=== PATIENT | female | born 1955 | race Caucasian/White ===

== ENCOUNTER → 2017-01-15 | Outpatient (CLI) | payer BC ==
[~2017-01-15] MED LIST: ASPEC325 PO; ESTR1CRE PV; HYDR-5688 PO; KETO10TA PO; LISI-729 PO
[2017-01-15 16:58] LABS: POTASSIUM 3.8 mmol/L (3.5-5.1)
[2017-01-15 16:59] LABS: BASO % 0.9 %; BASO ABS # 0.05 K/uL (0-0.2); COMPLETE YES; EOS % 1.1 %; HEMATOCRIT 38.5 % (37-47); IG% 0.4 %; LYMPH % 37.6 %; LYMPH ABS # 2.11 K/uL (1.2-3.4); MEAN CELL VOLUME 96.3 fL (80-100); MEAN CORPUSCULAR HEMOGLOBIN 32.8 pg (25-34); MONO % 8.6 %; NEUT % 51.4 %; PLATELET COUNT 255 K/uL (130-400); WHITE BLOOD COUNT 5.61 K/uL (4.8-10.8)
== END | disposition home or self-care (01) ==
LOC: C.LABBC 14:14
PROVIDERS: ATTEND Orthopaedic Surgery Sports Medicine
DX: Z01.812 Encounter for preprocedural laboratory examination (principal)

== ENCOUNTER → 2017-01-17 | Day surgery (SDC) | payer BC ==
[2017-01-15 15:38] VITALS: Ht 172.7 cm; Wt 65.9 kg
[~2017-01-17] VITALS: Ht 172.7 cm; Wt 65.9 kg
[~2017-01-17] MED LIST changes: +ATROPINE SULFATE 0.1 MG/ML 5ML SYR IV PRN; +BUPIVACAINE/EPINEPHRINE 0.5% MPF 1:200,000 30 ML VIAL ONE; +CEFAZOLIN 1000MG/55 ML D5W IV SCH; +CEFAZOLIN SOD 1 GM VIAL IV ONE; +DEXAMETHASONE SOD INJ 4 MG/ML VIAL ONE; -ESTR1CRE PV; +EpHEDrine SULFATE INJ 50 MG/ML AMP IV PRN; +EpHEDrine SULFATE INJ 50 MG/ML AMP ONE; +FENTANYL CITRATE INJ 50 MCG/1 ML 2 ML VIAL ONE; +FLUMAZENIL 0.1 MG/1 ML 10 ML VIAL IV PRN; +GLYCOPYRROLATE INJ 0.2 MG/ML VIAL ONE; +HYDROCODONE/ACETAMOPHEN 5/325MG TAB PO PRN; +HYDROmorphone INJ 1 MG/ML SYR IV PRN; +KETOROLAC TROMETHAMINE 30 MG/ML VIAL IV. PRN; +LABETALOL HCL IV 5 MG/ML 20ML IV PRN; +LACTATED RINGER'S 1000ML 1,000 ML IV SCH; +LIDOCAINE HCL 2% 2 ML VIAL (20MG/ML) ONE; +MEPIVACAINE HCL 1% 30 ML VIAL ONE; +MIDAZOLAM HCL 1 MG/ML 2ML VIAL ONE; +NALOXONE HCL 0.4 MG/1 ML VIAL/CARP IV PRN; +NEOSTIGMINE METHYLSULFATE 5 MG/5 ML SYR ONE; +ONDANSETRON INJ 2 MG/ML 2 ML VIAL IV PRN; +ONDANSETRON INJ 2 MG/ML 2 ML VIAL ONE; +PHENYLEPHRINE HCL INJ 10 MG/ML VIAL ONE; +PROMETHAZINE HCL INJ 12.5 MG in SODIUM CHLORIDE 0.9% 50ML 50 ML IV PRN; +PROPOFOL IV EMULSION 10 MG/ML 20 ML VIAL IV ONE; +ROCURONIUM BROMIDE 10 MG/ML 5 ML VIAL ONE; +ROPIVACAINE 0.5% 5 MG/ML 30 ML VIAL ONE; +SODIUM CHLORIDE 0.9% 1000ML 1,000 ML IV SCH; +SUCCINYLCHOLINE CHLORIDE 20 MG/ML 10 ML VIAL IV ONE
--- NOTE | 2017-01-17 06:59 | History & Physical Bridge - SC ---
H&P Re-Evaluation Bridge Note: I have examined the patient, reviewed the History & Physical and in the interval since the performance of the History & Physical I have noted the following changes of clinical significance: No changes noted
--- NOTE | 2017-01-17 08:21 | [facility] Post Operative Brief Note ---
Immediate Operative Summary Operative Date Jan 17, 2017. Pre-Operative Diagnosis Left Achilles Tendon Rupture Post-Operative Diagnosis Same Procedure(s) Performed Left Achilles Tendon Repair Surgeon Dr Calixto [employer] Lab[employer] Surgeon(s) Juliette Solorzano PA-C Estimated Blood Loss Minimal Findings Left Achilles Rupture Specimens None Anesthesia General Complication(s) None Disposition Recovery Room / PACU
--- NOTE | 2017-01-17 08:23 | Discharge Instructions-SurgCtr ---
Discharge Instructions Date of Service Jan 17, 2017. Visit Reason for Visit: Left Achilles Tendon Rupture Discharge Discharge Diagnosis / Problem: LEFT ACHILLES TENDON RUPTURE Discharge Goals Goal(s): Therapeutic intervention Activity Recommendations Activity Limitations: per Instructions/Follow-up section Weightbearing Status: Left non-weightbearing Anesthesia . Post Anesthesia Instructions: If you have had General Anesthesia or IV Sedation: * Do not drive today. * Resume driving when surgeon permits. * Do not make important decisions or sign legal documents today. * Call surgeon for: 1. Temperature elevations greater than 101 degrees F. 2. Uncontrollable pain. 3. Excessive bleeding. 4. Persistent nausea and vomiting. 5. Medication intolerance (nausea, vomiting or rash). * For nausea and vomiting use only clear liquids such as: tea, soda, bouillon until nausea subsides, then gradually increase diet as tolerated. * If you have any concerns or questions, call your surgeon's office. If physician is unavailable and it is an emergency, call 911 or go to the nearest emergency room. . Instructions / Follow-Up Instructions / Follow-Up MEDICATIONS: * Resume previous medications unless instructed otherwise by your surgeon. * Always take pain medication on a full stomach or with food to avoid upset stomach. * Do not drink alcohol or drive while taking narcotics. * Ibuprofen or Tylenol may be taken if narcotic not needed. NO IBUPROFEN WHILE TAKING TORADOL SPECIAL CARE INSTRUCTIONS: __ None _X_ Keep Left lower extremity elevated as much as possible x__ Crutches __ May discard when able __ Brace/Post-op shoe __ 24 hrs/day __ Remove at night _x_ Dressing _x_ Maintain until seen in office, may shower with plastic over site __ Remove dressings in 24-48 hours and then may shower __ Cover incisions with band-aids after showering __ Do not remove steri-strips Call physician if chills or temperature rises above 102 degrees or pain unrelieved by prescribed pain medications. Office [phone] follow up in 2 weeks Diet Recommendations Home Diet: resume previous diet Procedures Procedures Performed: Left Achilles Tendon Repair Pending Studies Studies pending at discharge: no Medical Emergencies . Who to Call and When: Medical Emergencies: If at any time you feel your situation is an emergency, please call 911 immediately. . Non-Emergent Contact Non-Emergency issues call your: Primary Care Provider, Surgeon . . "Provider Documentation" section prepared by Brian Solorzano.
--- NOTE | 2017-01-17 08:52 | OPERATIVE REPORT ---
DATE OF OPERATION: 01/17/2017 SURGEON: Cornell Calixto MD SLIPMAN: COLTON Ott PREOPERATIVE DIAGNOSIS: Left Achilles tendon rupture. POSTOPERATIVE DIAGNOSIS: Same. PROCEDURE PERFORMED: Left Achilles tendon repair. COMPLICATIONS: None. ESTIMATED BLOOD LOSS: Minimal. TOURNIQUET TIME: 24 minutes at 300 mmHg. ANESTHESIA: General. SPECIMENS: None. OPERATIVE INDICATIONS: The patient is a 61-year-old female who injured her ankle just a little over a week ago. She was apparently playing some type of pickleball game in [place] when she sustained the injury. She felt an acute pop in her left gastroc/Achilles area. She was seen in the Emergency Room and then referred to our institution for care. She is diagnosed with an Achilles rupture. We talked about operative and nonoperative treatments and she elected to proceed with operative treatment. OPERATIVE PROCEDURE: The patient was taken to the operating room, identified and placed on the operating table in supine position. All contact areas were appropriately padded. IV antibiotics were provided by the anesthesia team. A general anesthetic was implemented by anesthesia team. The patient was then placed in the prone position using the prone positioners. A left thigh tourniquet was then placed. All contact areas were meticulously padded and the left leg was then prepped and draped in usual sterile fashion. Left leg was elevated and exsanguinated with Esmarch and tourniquet was placed at 300 mmHg. A longitudinal incision made over the medial border of the Achilles tendon. Sharp dissection was carried out through the subcutaneous tissue directly down to the peritenon. The peritenon was incised longitudinally in line with the skin incision. The ruptured Achilles tendon was easily visualized. I then placed a FiberTape in the proximal segment using a modified [place] stitch technique. I placed a #5 Ethibond suture in a similar fashion in the distal segment. We then held the foot in plantar flexion and tied these sutures together. It provided excellent approximation. I irrigated the wound extensively. I injected locally with 30 mL of 0.5% Marcaine with epinephrine. The peritenon was then closed over the back of the Achilles tendon with 3-0 Vicryl suture in a [id number] fashion. The subcutaneous tissues were then closed with 3-0 Vicryl suture in a buried interrupted fashion. The tourniquet was then let down for a tourniquet time 24 minutes. There was minimal bleeding. The skin was then closed with 3-0 nylon suture in a simple fashion. The leg was then cleaned and dried and a sterile dressing of Xeroform, 4 x 4's, sterile cast padding and a well-padded posterior and stirrup splint were applied. The patient then brought out of general anesthesia and transferred to the recovery room in stable condition. The patient tolerated the procedure well with no complications. All needle and sponge counts were correct at the end of the operation. I attest to the content of the Intraoperative Record and any orders documented therein. Any exceptions are noted below. MTDD
[2017-01-17 09:00] VITALS: TEMP 36.4
[2017-01-17 09:25] VITALS: BP 148/82; PULSE 60; O2SAT 98
--- NOTE | 2017-01-17 09:31 | Anesthesia Progress Nt - [facility] ---
Anesthesia Post Op Note Date & Time Jan 17, 2017 at 09:32 Vital Signs Pain Intensity: 0 Vital Signs Past 12 Hours Date Time Temp Pulse Resp B/P Pulse Ox O2 Delivery O2 Flow Rate FiO2 01/17/17 09:25 60 20 148/82 98 Room Air 01/17/17 09:00 36.4 60 20 115/73 95 Room Air 01/17/17 08:51 55 12 94 01/17/17 08:51 55 12 01/17/17 08:50 124/61 01/17/17 08:48 36.6 58 12 129/54 96 Room Air 01/17/17 08:46 60 12 99 01/17/17 08:46 61 12 01/17/17 08:45 129/54 01/17/17 08:43 59 12 92 01/17/17 08:43 59 12 01/17/17 08:40 122/61 01/17/17 08:38 57 18 99 01/17/17 08:38 57 18 01/17/17 08:35 111/54 01/17/17 08:33 58 7 100 01/17/17 08:33 58 7 01/17/17 08:30 113/51 01/17/17 08:28 66 9 01/17/17 08:28 65 9 100 01/17/17 08:27 66 12 100 01/17/17 08:27 66 12 01/17/17 08:25 120/52 01/17/17 08:22 70 15 01/17/17 08:22 72 15 100 01/17/17 08:20 116/52 01/17/17 08:17 36.6 71 12 128/67 100 Diffusion Mask 6 01/17/17 08:17 80 6 01/17/17 08:17 79 6 128/67 100 01/17/17 06:22 36.5 66 16 133/64 100 Room Air Notes Mental Status: alert / awake / arousable, participated in evaluation Pt Amnestic to Procedure: Yes Nausea / Vomiting: adequately controlled Pain: adequately controlled Airway Patency, RR, SpO2: stable & adequate BP & HR: stable & adequate Hydration State: stable & adequate Anesthetic Complications: no major complications apparent
== END | disposition home or self-care (01) ==
LOC: X.SURG 06:10
PROVIDERS: ATTEND Orthopaedic Surgery Sports Medicine
DX: S86.012A Strain of left Achilles tendon, initial encounter (principal); Y93.73 Activity, racquet and hand sports; Y92.312 Tennis court as the place of occurrence of the external cause

== ENCOUNTER → 2017-10-23 | Outpatient (CLI) | payer BC ==
[~2017-10-23] MED LIST changes: -ATROPINE SULFATE 0.1 MG/ML 5ML SYR IV PRN; -BUPIVACAINE/EPINEPHRINE 0.5% MPF 1:200,000 30 ML VIAL ONE; -CEFAZOLIN 1000MG/55 ML D5W IV SCH; -CEFAZOLIN SOD 1 GM VIAL IV ONE; -DEXAMETHASONE SOD INJ 4 MG/ML VIAL ONE; -EpHEDrine SULFATE INJ 50 MG/ML AMP IV PRN; -EpHEDrine SULFATE INJ 50 MG/ML AMP ONE; -FENTANYL CITRATE INJ 50 MCG/1 ML 2 ML VIAL ONE; -FLUMAZENIL 0.1 MG/1 ML 10 ML VIAL IV PRN; -GLYCOPYRROLATE INJ 0.2 MG/ML VIAL ONE; -HYDR-5688 PO; -HYDROCODONE/ACETAMOPHEN 5/325MG TAB PO PRN; -HYDROmorphone INJ 1 MG/ML SYR IV PRN; -KETO10TA PO; -KETOROLAC TROMETHAMINE 30 MG/ML VIAL IV. PRN; -LABETALOL HCL IV 5 MG/ML 20ML IV PRN; -LACTATED RINGER'S 1000ML 1,000 ML IV SCH; -LIDOCAINE HCL 2% 2 ML VIAL (20MG/ML) ONE; -MEPIVACAINE HCL 1% 30 ML VIAL ONE; -MIDAZOLAM HCL 1 MG/ML 2ML VIAL ONE; -NALOXONE HCL 0.4 MG/1 ML VIAL/CARP IV PRN; -NEOSTIGMINE METHYLSULFATE 5 MG/5 ML SYR ONE; -ONDANSETRON INJ 2 MG/ML 2 ML VIAL IV PRN; -ONDANSETRON INJ 2 MG/ML 2 ML VIAL ONE; -PHENYLEPHRINE HCL INJ 10 MG/ML VIAL ONE; -PROMETHAZINE HCL INJ 12.5 MG in SODIUM CHLORIDE 0.9% 50ML 50 ML IV PRN; -PROPOFOL IV EMULSION 10 MG/ML 20 ML VIAL IV ONE; -ROCURONIUM BROMIDE 10 MG/ML 5 ML VIAL ONE; -ROPIVACAINE 0.5% 5 MG/ML 30 ML VIAL ONE; -SODIUM CHLORIDE 0.9% 1000ML 1,000 ML IV SCH; -SUCCINYLCHOLINE CHLORIDE 20 MG/ML 10 ML VIAL IV ONE
--- NOTE | 2017-10-24 15:59 | MAMMOGRAPHY REPORT ---
BILATERAL DIGITAL SCREENING MAMMOGRAM TOMOSYNTHESIS WITH CAD: 10/23/2017 CLINICAL HISTORY: Routine screening examination. TECHNIQUE: Breast tomosynthesis in addition to standard 2D mammography was performed. Current study was also evaluated with a Computer Aided Detection (CAD) system. COMPARISON: Comparison is made to exams dated: 10/17/2016 mammogram, 10/15/2015 mammogram, 10/14/2014 m ammogram, 10/13/2013 mammogram, 10/08/2012 mammogram, and 10/03/2011 mammogram - [facility]. BREAST COMPOSITION: There are scattered areas of fibroglandular density in both breasts. FINDINGS: There is stable asymmetry in the superior right breast. No suspicious mass, architectural distortion or cluster of microcalcifications is seen. IMPRESSION: ACR BI-RADS CATEGORY 1: NEGATIVE There is no mammographic evidence of malignancy. A 1 year screening mammogram is recommended. The pa tient will receive written notification of the results. Approximately 10% of breast cancers are not detected with mammography. A negative mammographic report should not delay biopsy if a clinically suggestive mass is present. Ilana Yousif M.D. ay/:10/23/2017 16:32:33 Hydraulic Repairer: Stephanie SHAH(Caterina)(M), [facility] letter sent: Normal 1/2 BI-RADS Code: ACR BI-RADS Category 1: Negative
== END | disposition home or self-care (01) ==
LOC: C.MAMM 11:11
PROVIDERS: ATTEND Nurse Practitioner
DX: Z12.31 Encounter for screening mammogram for malignant neoplasm of breast (principal)

== ENCOUNTER 2025-06-03 08:36 | Inpatient (IN) ==
[2025-06-03] MEDS: ONDANSETRON INJ 2 MG/ML 2 ML VIAL IV STA ×2 (08:50→09:26)
[2025-06-03] MEDS: SODIUM CHLORIDE 0.9% 500 ML IV STA (08:50)
[2025-06-03] MEDS: ASPIRIN CHEW 324 MG PO STA (08:50)
[2025-06-03] MEDS: MoRPHine SULFATE 4 MG/ML 1 ML CARP\\VIAL IV STA (08:50)
--- NOTE | 2025-06-03 08:54 | Emergency Department Note ---
Impression & Plan NSTEMI (non-ST elevated myocardial infarction), Elevated troponin, Stress- induced cardiomyopathy ED Provider Note NAME: JENARO RANGEL AGE: 69 SEX: F : 1955 ARRIVES VIA: Walk-In INFORMANT: Patient, ED PROVIDER(S): Jamaal Isaacs DO CHIEF COMPLAINT: Chest pain HPI: The patient is a 69-year-old female who presented to the emergency department for an evaluation of chest pain. The patient describes left-sided chest pain which began 2 days ago. She states initially it was waxing and waning. She woke this morning with constant pain. She was very diaphoretic. She states she has pain with movement as well as taking a deep breath. She has a history of a fall with rib fractures recently. She denies having any abdominal pain or back pain. She denies having any vomiting but does complain of some nausea. ROS: See above HPI for pertinent positives & negatives. A total of 10 systems reviewed and were otherwise negative. PAST MEDICAL HISTORY: See Below PAST SURGICAL HISTORY: See Below FAMILY HISTORY: See Below SOCIAL HISTORY: See Below HOME MEDICATIONS: See Below ALLERGIES: See Below VITALS: See Below PHYSICAL EXAMINATION: GENERAL: The patient is awake and alert. She appears anxious and uncomfortable. EYES: The conjunctivae are clear. The pupils are round and reactive. EARS, NOSE, MOUTH AND THROAT: The nose is without any evidence of any deformity. NECK: The neck is nontender and supple. RESPIRATORY: Normal respiratory effort is noted there is no evidence of wheezing rhonchi or rales CARDIOVASCULAR: Regular rate and rhythm noted there no murmurs rubs or gallops normal S1 normal S2. GASTROINTESTINAL: The abdomen is soft. Abdomen is nontender. MUSCULOSKELETAL/EXTREMITIES: There is no evidence of gross deformity full range of motion is noted in the hips and shoulders. There is palpable tenderness over the left lower chest wall. There is no crepitus. SKIN: There is no obvious evidence of any rash. There are no petechiae, pallor or cyanosis noted. NEUROLOGIC: Patient is awake alert and oriented x3. Gait was steady. MEDICAL DECISION MAKING: The patient is a 69-year-old female who presented to the emergency department for an evaluation of chest pain. The patient did have EKG abnormalities on initial EKG. This was not consistent with a STEMI but was consistent with ischemia. The patient's previous EKG did show some similar ST abnormalities. The patient was treated with aspirin as well as pain medicine in the emergency department. She was reevaluated multiple times. The patient was found have an elevated troponin. She started having episodes of hypotension. I was concerned this could represent cardiogenic shock. I discussed her condition with the on- call [facility] long goods drier. The on-call long goods drier did review the patient's EKGs and an echo was obtained. The patient appeared to have apical hypokinesis. The patient was felt to be a good candidate for cardiac catheterization. She was evaluated by the aboriginal community council member. She was taken to the Russian History Professor. The patient was started on heparin. Triage Nursing notes reviewed. Prior medical records reviewed Vital Signs: reviewed and remarkable for episodes of hypotension. Differential diagnosis: Cardiac ischemia, aortic dissection, pulmonary embolism, pneumothorax, pneumonia, pericarditis, myocarditis, esophageal rupture, GERD, cholecystitis, pancreatitis, musculoskeletal, as well as other pathologies. ER treatment provided: See below Diagnostics interpreted by me: ECG: EKG was obtained in the emergency department. My interpretation is normal sinus rhythm at 95 bpm. There is no ectopy. Nonspecific ST depressions were noted. LVH was suggested by voltage criteria. This was compared to a tracing from June 28, 2013. No changes were noted. A second EKG was obtained in the emergency department. My interpretation is sinus rhythm at 95 bpm. There are no PVCs were noted. Increasing ST depressions were noted in the apical and low lateral leads. Cardiac Monitoring: An order was placed for continuous cardiac monitoring. The monitor shows a rate of 85 bpm with sinus rhythm. Laboratory studies: As stated above and show below. Imaging studies: See below. Radiographic imaging was reviewed by myself Consultation(s): I discussed this case with Dr. Lynn who is on for the [facility] cardiology group. I discussed this case with Dr. Reyes who is on-call for the [facility] hospitalist group. ED COURSE: Procedures: none Critical Care: I have personally spent greater than 45 minutes of critical care time in the direct management of this patient. This includes bedside care, interpretation of diagnostic studies, and testing, discussion with consultants, patient, and family members, and other required patient management activities. This 45 minutes is in excess of all separately billable procedures. Past Med/Surg History Problem List (Updated 06/03/25 @ 14:32 by Jamaal Isaacs, DO) Stress-induced cardiomyopathy (Acute) Elevated troponin (Acute) Acute exacerbation of congestive heart failure NSTEMI (non-ST elevated myocardial infarction) (Acute) Acute hypoxic respiratory failure Hypertension (Acute) Medical History HTN (hypertension) Cardiac murmur Follows with Dr. Rolle Surgical History Hx of right cataract extraction History of Achilles tendon repair History of esophagogastroduodenoscopy (EGD) History of colonoscopy History of repair of anterior cruciate ligament Family History Other No family history of adverse response to anesthesia Social History Smoking Status: Never smoker Second Hand Exposure: No; Do You Dip or Chew Tobacco: No; Hx Alcohol Use: Yes Alcohol type: wine Hx Substance Use: No Preferred Language: Japanese Communication Ability: Effective Flotation Tender Helper Required: No Beliefs That Will Affect Care: None Current Living Situation: Spouse Other Information That Helps Us Care for You: No Feels Safe at Home: Yes Safety Concerns: Feels Safe At This Time Assistive Devices: None Allergies Allergies Allergy/AdvReac Type Severity Reaction Status Date / Time meperidine Allergy Unknown Rash Verified 06/03/25 10:36 Home Meds Home Medications Medication Instructions Recorded Confirmed metoprolol succinate 25 mg 25 mg PO QAM 01/22/19 06/03/25 tablet,extended release 24 hr lisinopril 20 mg tablet 20 mg PO QAM 09/28/23 06/03/25 rosuvastatin 5 mg tablet 5 mg PO QAM 09/28/23 06/03/25 Results & Data (ED) Vital Signs Vital Signs - 24 hr 06/03/25 08:41 06/03/25 08:46 06/03/25 08:47 Temperature 36.4 C L Temperature Source Oral Pulse Rate 96 H 92 H Pulse Rate from SpO2 Sensor Pulse Rhythm Regular Pulse Strength Normal Respiratory Rate 26 H Respiratory Effort / Characteristics Spontaneous Labored Non-Labored Spontaneous Respiratory Depth Shallow Normal Respiratory Pattern Regular Blood Pressure 98/63 L Blood Pressure Mean 74 Pulse Oximetry 99 Oxygen Delivery Method Room Air Oxygen Flow Rate Fraction of Inspired Oxygen Sepsis Recent Fever Within 48 Hours No Sepsis New/Unexplained Change in Mental Status N/A Sepsis Action Taken by Nursing No Action Required 06/03/25 08:57 06/03/25 09:01 06/03/25 09:03 Temperature Temperature Source Pulse Rate 95 H 91 H Pulse Rate from SpO2 Sensor 95 H 90 Pulse Rhythm Pulse Strength Respiratory Rate 13 21 Respiratory Effort / Characteristics Respiratory Depth Respiratory Pattern Blood Pressure 82/58 L Blood Pressure Mean 68 Pulse Oximetry 99 99 Oxygen Delivery Method Room Air Room Air Oxygen Flow Rate Fraction of Inspired Oxygen Sepsis Recent Fever Within 48 Hours Sepsis New/Unexplained Change in Mental Status Sepsis Action Taken by Nursing 06/03/25 09:05 06/03/25 09:05 06/03/25 09:16 Temperature Temperature Source Pulse Rate Pulse Rate from SpO2 Sensor Pulse Rhythm Pulse Strength Respiratory Rate Respiratory Effort / Characteristics Respiratory Depth Respiratory Pattern Blood Pressure 83/53 L 83/53 L 69/49 L Blood Pressure Mean 67 67 54 Pulse Oximetry Oxygen Delivery Method Oxygen Flow Rate Fraction of Inspired Oxygen Sepsis Recent Fever Within 48 Hours Sepsis New/Unexplained Change in Mental Status Sepsis Action Taken by Nursing 06/03/25 09:18 06/03/25 09:21 06/03/25 09:23 Temperature Temperature Source Pulse Rate 89 90 Pulse Rate from SpO2 Sensor 89 91 H Pulse Rhythm Pulse Strength Respiratory Rate 30 H 23 Respiratory Effort / Characteristics Respiratory Depth Respiratory Pattern Blood Pressure 85/53 L Blood Pressure Mean 70 Pulse Oximetry 99 97 Oxygen Delivery Method Room Air Room Air Oxygen Flow Rate Fraction of Inspired Oxygen Sepsis Recent Fever Within 48 Hours Sepsis New/Unexplained Change in Mental Status Sepsis Action Taken by Nursing 06/03/25 09:26 06/03/25 09:46 06/03/25 09:48 Temperature Temperature Source Pulse Rate 94 H Pulse Rate from SpO2 Sensor 81 Pulse Rhythm Pulse Strength Respiratory Rate 29 H Respiratory Effort / Characteristics Respiratory Depth Respiratory Pattern Blood Pressure 89/67 L 84/59 L Blood Pressure Mean 82 62 Pulse Oximetry 96 Oxygen Delivery Method Room Air Oxygen Flow Rate Fraction of Inspired Oxygen Sepsis Recent Fever Within 48 Hours Sepsis New/Unexplained Change in Mental Status Sepsis Action Taken by Nursing 06/03/25 09:55 06/03/25 09:57 06/03/25 09:57 Temperature Temperature Source Pulse Rate 97 H Pulse Rate from SpO2 Sensor Pulse Rhythm Pulse Strength Respiratory Rate 23 Respiratory Effort / Characteristics Respiratory Depth Respiratory Pattern Blood Pressure 90/56 L Blood Pressure Mean 70 Pulse Oximetry 94 94 Oxygen Delivery Method Nasal Cannula Nasal Cannula Oxygen Flow Rate 4 4 Fraction of Inspired Oxygen Sepsis Recent Fever Within 48 Hours Sepsis New/Unexplained Change in Mental Status Sepsis Action Taken by Nursing 06/03/25 09:57 06/03/25 10:00 06/03/25 10:00 Temperature Temperature Source Pulse Rate 96 H 91 H Pulse Rate from SpO2 Sensor 96 H Pulse Rhythm Pulse Strength Respiratory Rate 21 31 H Respiratory Effort / Characteristics Respiratory Depth Respiratory Pattern Blood Pressure 83/59 L Blood Pressure Mean 67 Pulse Oximetry 93 Oxygen Delivery Method Room Air Oxygen Flow Rate Fraction of Inspired Oxygen Sepsis Recent Fever Within 48 Hours Sepsis New/Unexplained Change in Mental Status Sepsis Action Taken by Nursing 06/03/25 10:05 06/03/25 10:48 06/03/25 10:51 Temperature Temperature Source Pulse Rate 91 H Pulse Rate from SpO2 Sensor Pulse Rhythm Pulse Strength Respiratory Rate 15 Respiratory Effort / Characteristics Spontaneous Respiratory Depth Normal Respiratory Pattern Regular Blood Pressure 86/60 L Blood Pressure Mean 62 Pulse Oximetry 90 Oxygen Delivery Method Nasal Cannula Oxygen Flow Rate 4 Fraction of Inspired Oxygen 100 Sepsis Recent Fever Within 48 Hours Sepsis New/Unexplained Change in Mental Status Sepsis Action Taken by Nursing 06/03/25 11:05 Temperature Temperature Source Pulse Rate 92 H Pulse Rate from SpO2 Sensor Pulse Rhythm Pulse Strength Respiratory Rate 28 H Respiratory Effort / Characteristics Spontaneous Respiratory Depth Normal Respiratory Pattern Tachypnea Blood Pressure Blood Pressure Mean Pulse Oximetry 95 Oxygen Delivery Method Oxygen Flow Rate Fraction of Inspired Oxygen 50 Sepsis Recent Fever Within 48 Hours Sepsis New/Unexplained Change in Mental Status Sepsis Action Taken by [facility] Medications Current Medication List: was personally reviewed by me Laboratory Data Attestation: I reviewed the patient's lab results. 06/03/25 08:51 06/03/25 08:51 Lab Results 06/03/25 06/03/25 06/03/25 Range/Units 08:51 09:18 09:30 WBC 6.01 (4.8-10.8) K/ul RBC 3.58 L (4.20-5.40) M/uL Hgb 12.8 (12.0-16.0) g/dl Hct 36.5 L (37.0-47.0) % MCV 102.0 H (80.0-100.0) fL MCH 35.8 H (25.0-34.0) pg MCHC 35.1 (32.0-36.0) g/dL RDW Std Deviation 45.6 (36.4-46.3) fL RDW Coeff of [place] 12.1 (11.5-14.5) % Plt Count 149 (130-400) K/uL MPV 9.2 L (9.4-12.4) fL Immature Gran % (Auto) 1.0 % Neut % (Auto) 71.5 % Lymph % (Auto) 18.8 % [place] % (Auto) 7.0 % Eos % (Auto) 0.7 % Baso % (Auto) 1.0 % Neut # (Auto) 4.30 (1.40-6.50) K/uL Lymph # (Auto) 1.13 L (1.20-3.40) K/uL [place] # (Auto) 0.42 (0.11-0.59) K/uL Eos # (Auto) 0.04 (0.00-0.50) K/uL Baso # (Auto) 0.06 (0.00-0.20) K/uL Immature Gran # (Auto) 0.06 (0.01-0.20) K/uL PT Cancelled 11.2 INR Cancelled 1.0 APTT Cancelled 26 PTT Ratio Cancelled 1.0 Activ Coag Time Kaolin (94-140) SECONDS D-Dimer Cancelled 560 H* Sodium 131 L (136-145) mmol/L Potassium 4.6 (3.5-5.1) mmol/L Chloride 94 L (98-107) mmol/L Carbon Dioxide 23 (21-32) mmol/L Anion Gap 14 H (3-11) BUN 11 (6-23) mg/dl Creatinine 0.93 (0.6-1.2) mg/dl Est Cr Clr Drug Dosing 56.6 ml/min eGFR 66.53 BUN/Creatinine Ratio 11.8 (10-20) Glucose 112 H (70-99(Fasting)) mg/dl Calcium 9.4 (8.6-10.3) mg/dl Total Bilirubin 1.5 H (0.2-1.0) mg/dl AST 168 H (13-39) U/L ALT 41 (7-52) U/L Alkaline Phosphatase 61 (34-104) U/L Troponin I High Sens 356.8 H* (0-14) pg/ml C-Reactive Protein < 0.50 (0-0.5) mg/dl Total Protein 6.8 (6.0-8.3) gm/dl Albumin 4.4 (3.4-5.0) gm/dl Globulin 2.4 L (2.5-4.0) gm/dl Albumin/Globulin Ratio 1.8 (0.9-2) Lipase 71 (11-82) U/L Procalcitonin 0.31 (0-0.5) ng/ml 06/03/25 06/03/25 Range/Units 10:48 10:58 WBC (4.8-10.8) K/ul RBC (4.20-5.40) M/uL Hgb (12.0-16.0) g/dl Hct (37.0-47.0) % MCV (80.0-100.0) fL MCH (25.0-34.0) pg MCHC (32.0-36.0) g/dL RDW Std Deviation (36.4-46.3) fL RDW Coeff of [place] (11.5-14.5) % Plt Count (130-400) K/uL MPV (9.4-12.4) fL Immature Gran % (Auto) % Neut % (Auto) % Lymph % (Auto) % [place] % (Auto) % Eos % (Auto) % Baso % (Auto) % Neut # (Auto) (1.40-6.50) K/uL Lymph # (Auto) (1.20-3.40) K/uL [place] # (Auto) (0.11-0.59) K/uL Eos # (Auto) (0.00-0.50) K/uL Baso # (Auto) (0.00-0.20) K/uL Immature Gran # (Auto) (0.01-0.20) K/uL PT INR APTT PTT Ratio Activ Coag Time Kaolin 170 H 204 H (94-140) SECONDS D-Dimer Sodium (136-145) mmol/L Potassium (3.5-5.1) mmol/L Chloride (98-107) mmol/L Carbon Dioxide (21-32) mmol/L Anion Gap (3-11) BUN (6-23) mg/dl Creatinine (0.6-1.2) mg/dl Est Cr Clr Drug Dosing ml/min eGFR BUN/Creatinine Ratio (10-20) Glucose (70-99(Fasting)) mg/dl Calcium (8.6-10.3) mg/dl Total Bilirubin (0.2-1.0) mg/dl AST (13-39) U/L ALT (7-52) U/L Alkaline Phosphatase (34-104) U/L Troponin I High Sens (0-14) pg/ml C-Reactive Protein (0-0.5) mg/dl Total Protein (6.0-8.3) gm/dl Albumin (3.4-5.0) gm/dl Globulin (2.5-4.0) gm/dl Albumin/Globulin Ratio (0.9-2) Lipase (11-82) U/L Procalcitonin (0-0.5) ng/ml Administered Medications Promethazine HCl (Phenergan) 12.5 mg in 50.5 mls @ 202 mls/hr IV Q6H PRN PRN Reason: Nausea And Vomiting Stop: 07/03/25 13:23 Last Infusion: 06/03/25 14:29 Dose: Infused Documented By: Admin: 06/03/25 13:38 Dose: 202 mls/hr Documented By: GORDO Discontinued Medications Aspirin (Aspirin Chew 324 Mg) 324 mg PO NOW STA Stop: 06/03/25 08:42 Last Admin: 06/03/25 08:50 Dose: 324 mg Documented By: LADI Fentanyl Citrate (Fentanyl Citrate Pf 100 Mcg/2 Ml Vial) Confirm Administered Dose 100 mcg .ROUTE .STK-MED ONE Stop: 06/03/25 10:26 Last Increment: 06/03/25 11:07 Dose: 25 mcg Documented By: LASHELL Furosemide (Furosemide 40 Mg/4 Ml Vial) Confirm Administered Dose 40 mg IV .STK- MED ONE Stop: 06/03/25 10:43 Last Admin: 06/03/25 11:08 Dose: 20 mg Documented By: LASHELL Heparin Sodium (Porcine) (Heparin Sod (Porcine) 1000 Unit/Ml) 1 units IV NOW ONE Stop: 06/03/25 10:05 Last Admin: 06/03/25 10:06 Dose: 4,000 units Documented By: RACHNA Co-signed By: JKB Heparin Sodium (Porcine) (Heparin (Porcine) 1000 Unit/Ml 10 Ml (Russian History Professor Use Only)) Confirm Administered Dose 10,000 units .ROUTE .STK-MED ONE Stop: 06/03/25 10:25 Last Admin: 06/03/25 11:06 Dose: 3,000 units Documented By: LASHELL Heparin Sodium/Dextrose (Heparin Iv Adult Wt-Based Low-Dose W/ Initial Bolus Protocol) 1 each IV NOW STA; Protocol Stop: 06/03/25 09:50 Last Admin: 06/03/25 12:01 Dose: Not Given Documented By: GORDO Heparin Sodium/Sodium Chloride (Heparin In Nss Infusion 1000 Unit/500 Ml (2 U/Ml) Bag) Confirm Administered Dose 3,000 units IV .STK-MED ONE Stop: 06/03/25 10:26 Last Admin: 06/03/25 11:07 Dose: 3,000 units Documented By: AURA Sodium Chloride (Nss) 500 mls @ 999 mls/hr IV .Q31M STA Stop: 06/03/25 09:11 Last Infusion: 06/03/25 10:03 Dose: Infused Documented By: Admin: 06/03/25 08:50 Dose: 999 mls/hr Documented By: LADI Sodium Chloride (Nss) 1,000 mls @ 999 mls/hr IV .Q1H1M ONE Stop: 06/03/25 10:03 Last Infusion: 06/03/25 10:01 Dose: Infused Documented By: Admin: 06/03/25 09:06 Dose: 999 mls/hr Documented By: LADI Sodium Chloride (Nss) 1,000 mls @ 999 mls/hr IV .Q1H1M ONE Stop: 06/03/25 10:19 Last Infusion: 06/03/25 10:01 Dose: Infused Documented By: Admin: 06/03/25 09:28 Dose: 999 mls/hr Documented By: LADI Heparin Sodium/Dextrose (Heparin 27881 Unit/500 Ml D5w) 25,000 units in 500 mls @ 15 mls/hr IV .Q24H [facility]; Protocol Stop: 07/03/25 10:14 Last Titration: 06/03/25 12:01 Dose: Infused Documented By: GORDO Co-signed By: DAMIAN Admin: 06/03/25 10:07 Dose: 750 units/hr, 15 mls/hr Documented By: RACHNA Co-signed By: FARTUN Ceftriaxone Sodium (Rocephin) 2,000 mg in 50 mls @ 100 mls/hr IV NOW STA Stop: 06/03/25 10:34 Last Admin: 06/03/25 12:01 Dose: Not Given Documented By: GORDO Ioversol (Optiray 320 125ml) 112 ml IV ONCE ONE Stop: 06/03/25 09:35 Last Admin: 06/03/25 09:35 Dose: 112 ml Documented By: DYLAN Ioversol (Optiray 350) Confirm Administered Dose 1 ml .ROUTE .STK-MED ONE Stop: 06/03/25 10:26 Last Admin: 06/03/25 11:08 Dose: 1 ml Documented By: AURA Midazolam HCl (Midazolam Hcl 1 Mg/Ml 2ml Vial) Confirm Administered Dose 2 mg .ROUTE .STK-MED ONE Stop: 06/03/25 10:25 Last Increment: 06/03/25 11:06 Dose: 1 mg Documented By: LASHELL Morphine Sulfate (Morphine Sulfate 4 Mg/Ml 1 Ml Carp\Vial) 4 mg IV NOW STA Stop: 06/03/25 08:42 Last Admin: 06/03/25 08:50 Dose: 4 mg Documented By: LADI Nicardipine HCl (Nicardipine 2,000 Mcg/20 Ml Syr) Confirm Administered Dose 2,000 mcg .ROUTE .STK-MED ONE Stop: 06/03/25 10:26 Last Admin: 06/03/25 11:08 Dose: 2,000 mcg Documented By: AURA Nitroglycerin/Dextrose (Nitroglycerin/D5w 100mcg/Ml 20ml Syr) Confirm Administered Dose 2,000 mcg .ROUTE .STK-MED ONE Stop: 06/03/25 10:26 Last Admin: 06/03/25 11:08 Dose: 2,000 mcg Documented By: AURA Ondansetron HCl (Ondansetron Inj 2 Mg/Ml 2 Ml Vial) 4 mg IV NOW STA Stop: 06/03/25 08:42 Last Admin: 06/03/25 08:50 Dose: 4 mg Documented By: LADI Ondansetron HCl (Ondansetron Inj 2 Mg/Ml 2 Ml Vial) 4 mg IV NOW STA Stop: 06/03/25 09:26 Last Admin: 06/03/25 09:26 Dose: 4 mg Documented By: LADI Phenylephrine HCl (Phenylephrine 100mcg/Ml 5ml Syr) Confirm Administered Dose 100 mcg .ROUTE .STK-MED ONE Stop: 06/03/25 10:48 Last Admin: 06/03/25 11:09 Dose: 100 mcg Documented By: LASHELL Co-signed By: JULIANOF Phenylephrine HCl (Phenylephrine Hcl 25 Mg/250 Ml Nss) Confirm Administered Dose 25 mg IV .STK-MED ONE Stop: 06/03/25 10:53 Last Admin: 06/03/25 11:09 Dose: 25 mg Documented By: LASHELL Co-signed By: TLF Ticagrelor (Ticagrelor 90 Mg Tab) Confirm Administered Dose 180 mg .ROUTE .STK- MED ONE Stop: 06/03/25 10:32 Last Admin: 06/03/25 10:34 Dose: 180 mg Documented By: RACHNA Imaging Data Attestation: I personally reviewed and interpreted this imaging study as follows: My Impression: 1 view chest x-ray was obtained in the emergency department. My interpretation is no free air or definite infiltrate, final report below. Radiologist's Impression: Chest X-Ray 06/03/25 08:41 XR chest 1V portable CLINICAL HISTORY: Chest pain, nonspecific COMPARISON STUDY: None FINDINGS: Heart size and pulmonary vasculature are normal. No consolidation or pleural effusion. No pneumothorax. IMPRESSION: No acute findings. ACT 112: Negative or not required by law. Electronically signed by: Anibal Meyers M.D. 06/03/2025 9:05 AM Abdomen/Pelvis CT 06/03/25 09:19 CT SCAN OF THE ABDOMEN AND PELVIS WITH IV CONTRAST CLINICAL HISTORY: Left-sided chest pain. COMPARISON STUDY: MRI of the pelvis October 09, 2006. TECHNIQUE: Following the IV administration of 112 cc of Optiray 320, CT scan of the abdomen and pelvis is performed from the lung bases to the proximal femora. Images are reviewed in the axial, sagittal, and coronal planes. IV contrast was administered without complication. A dose lowering technique was utilized adhering to the principles of ALARA. FINDINGS: Please note that the chest CT will be reported separately. Multiple healing anterior left-sided rib fractures are better depicted on that exam. Interlobular septal thickening is noted. No pneumatosis, free air or portal venous gas is identified. There is hepatic steatosis. There are no hepatic lesions. No biliary or pancreatic ductal dilatation is present. Spleen and adrenal glands are unremarkable. There is no peripancreatic infiltration. No hydronephrosis. Several cystic lesions within the pancreas measure up to 1.7 cm. These are cysts within the pancreatic body on image 86 of 361. No enhancing pancreatic lesions are present. There is no evidence for a bowel obstruction. The caliber and wall thickness of small and large bowel are normal. Mild mesenteric stranding is of doubtful significance. Multiple peripherally calcified fibroids measure up to 7.4 cm. These have decreased in size since MRI of October 09, 2006. Bladder wall thickening is accentuated by underdistention. There is no lymphadenopathy. There are no fluid collections. IMPRESSION: 1. No acute process within the abdomen or pelvis. 2. Hepatic steatosis. 3. Multiple calcified fibroids, decreased in size since MRI of October 09, 2006. 4. Several cystic pancreatic lesions measure up to 1.7 cm. These are likely benign and favor side branch IPMNs. A follow-up pancreatic protocol MRI in 6 months to ensure stability is recommended. 5. Interstitial pulmonary edema within the lung bases. Multiple healing left- sided rib fractures better depicted on the chest CT which will be reported separately. ACT 112: Negative or not required by law. Electronically signed by: Eddie Dinh M.D. 06/03/2025 10:09 AM Chest CTA 06/03/25 09:19 CT angio chest PE protocol CT DOSE: 1394.05 mGy.cm HISTORY: PE. TECHNIQUE: Multiple CTA images of the chest were obtained after the intravenous administration of 112 ml Optiray. Coronal and sagittal MIPS were obtained from the axial data set and were submitted for review. All measurements were obtained according to NASCET criteria. A dose lowering technique was utilized adhering to the principles of ALARA. COMPARISON STUDY: None FINDINGS: There is mild cardiomegaly with mild prominence of the pulmonary vasculature consistent with CHF. There is septal thickening and mild groundglass opacity in the lungs consistent with mild pulmonary edema. There is no pneumonia or pleural effusion. No pneumothorax. No enlarged adenopathy. No pericardial effusion. There are coronary artery and aortic calcifications. No pulmonary embolism. There is fatty liver. There are mild thoracic spine degenerative changes. There are a few subacute left-sided anterior lateral rib fractures which are incompletely healed. No acute osseous findings seen. IMPRESSION: 1. No pulmonary embolism seen. 2. CHF with mild pulmonary edema. 3. Subacute incompletely healed left-sided rib fractures. No significant displacement seen at the fractures. No pneumothorax. ACT 112: Negative or not required by law. The above report was generated using voice recognition software. It may contain grammatical, syntax or spelling errors. Electronically signed by: Anibal Meyers M.D. 06/03/2025 10:20 AM Discharge Plan Visit Data Chief Complaint: Chest Pain Stated Complaint: CHEST PAIN,SOB ED Provider: Jamaal Isaacs Discharge Problem: NSTEMI (non-ST elevated myocardial infarction), Elevated troponin, Stress- induced cardiomyopathy Patient Disposition: Admitted As Inpatient Condition: Critical Discharge Instructions Interventions: ED Discharge Assessment Last Done: 06/03/25 10:51
[2025-06-03] MEDS: SODIUM CHLORIDE 0.9% 1,000 ML IV ONE ×2 (09:06→09:28)
--- NOTE | 2025-06-03 09:06 | XRay Report ---
XR chest 1V portable CLINICAL HISTORY: Chest pain, nonspecific COMPARISON STUDY: None FINDINGS: Heart size and pulmonary vasculature are normal. No consolidation or pleural effusion. No p neumothorax. IMPRESSION: No acute findings. ACT 112: Negative or not required by law. Electronically signed by: Anibal Meyers M.D. 06/03/2025 9:05 AM
[2025-06-03 09:08] LABS: Hematocrit (blood only) 36.5 % (37.0-47.0); Hemoglobin 12.8 g/dl (12.0-16.0); Immature Granulocytes # (auto) 0.06 K/uL (0.01-0.20); Immature Granulocytes % (auto) 1.0 %; Mean Corpuscular Hemoglobin 35.8 pg (25.0-34.0); Mean Corpuscular Volume 102.0 fL (80.0-100.0); Platelet Count 149 K/uL (130-400); RDW Standard Deviation 45.6 fL (36.4-46.3); Red Blood Count 3.58 M/uL (4.20-5.40); White Blood Count 6.01 K/ul (4.8-10.8)
[2025-06-03 09:27] LABS: Alanine Aminotransferase 41.0 U/L (7-52); Albumin Globulin Ratio 1.8 (0.9-2); Alkaline Phosphatase 61.0 U/L (34-104); Anion Gap 14.0 (3-11); Bilirubin,Total 1.5 mg/dl (0.2-1.0); Blood Urea Nitrogen 11.0 mg/dl (6-23); Calcium 9.4 mg/dl (8.6-10.3); Carbon Dioxide 23.0 mmol/L (21-32); Chloride 94.0 mmol/L (98-107); Creatinine Clr Calc Pharmacy 56.6 ml/min; Globulin 2.4 gm/dl (2.5-4.0); Glucose 112.0 mg/dl (70-99(Fasting)); Lipase 71.0 U/L (11-82); Potassium 4.6 mmol/L (3.5-5.1); Sodium 131.0 mmol/L (136-145); Total Protein 6.8 gm/dl (6.0-8.3)
[2025-06-03] MEDS: OPTIRAY 320 125ml IV ONE (09:35)
[2025-06-03 09:53] LABS: INR 1.0 (0.9-1.1); Partial Thromboplastin Time 26 Seconds (21-31); Prothrombin Time 11.2 Seconds (9.0-12.0)
[2025-06-03] MEDS: HEPARIN SOD (PORCINE) 1000 UNIT/ML IV ONE (10:06)
[2025-06-03] MEDS: HEPARIN 25000 UNIT/500 ML D5W 25,000 UNITS/500 ML BAG IV SCH ×2 (10:07→18:07)
--- NOTE | 2025-06-03 10:11 | CT Scan Report ---
CT SCAN OF THE ABDOMEN AND PELVIS WITH IV CONTRAST CLINICAL HISTORY: Left-sided chest pain. COMPARISON STUDY: MRI of the pelvis October 09, 2006. TECHNIQUE: Following the IV administration of 112 cc of Optiray 320, CT scan of the abdomen and pelv is is performed from the lung bases to the proximal femora. Images are reviewed in the axial, sagitta l, and coronal planes. IV contrast was administered without complication. A dose lowering technique w as utilized adhering to the principles of ALARA. FINDINGS: Please note that the chest CT will be reported separately. Multiple healing anterior left-s ided rib fractures are better depicted on that exam. Interlobular septal thickening is noted. No pneu matosis, free air or portal venous gas is identified. There is hepatic steatosis. There are no hepati c lesions. No biliary or pancreatic ductal dilatation is present. Spleen and adrenal glands are unrem arkable. There is no peripancreatic infiltration. No hydronephrosis. Several cystic lesions within th e pancreas measure up to 1.7 cm. These are cysts within the pancreatic body on image 86 of 361. No en hancing pancreatic lesions are present. There is no evidence for a bowel obstruction. The caliber and wall thickness of small and large bowel are normal. Mild mesenteric stranding is of doubtful signifi cance. Multiple peripherally calcified fibroids measure up to 7.4 cm. These have decreased in size si nce MRI of October 09, 2006. Bladder wall thickening is accentuated by underdistention. There is no lymphadenopathy. There are no fluid collections. IMPRESSION: 1. No acute process within the abdomen or pelvis. 2. Hepatic steatosis. 3. Multiple calcified fibroids, decreased in size since MRI of October 09, 2006. 4. Several cystic pancreatic lesions measure up to 1.7 cm. These are likely benign and favor side bra nch IPMNs. A follow-up pancreatic protocol MRI in 6 months to ensure stability is recommended. 5. Interstitial pulmonary edema within the lung bases. Multiple healing left-sided rib fractures bett er depicted on the chest CT which will be reported separately. ACT 112: Negative or not required by law. Electronically signed by: Eddie Dinh M.D. 06/03/2025 10:09 AM
[2025-06-03] MEDS: cefTRIAXone SODIUM 2,000 MG/50 ML BAG IV STA (10:20)
--- NOTE | 2025-06-03 10:21 | CT Scan Report ---
CT angio chest PE protocol CT DOSE: 1394.05 mGy.cm HISTORY: PE. TECHNIQUE: Multiple CTA images of the chest were obtained after the intravenous administration of 112 ml Optiray. Coronal and sagittal MIPS were obtained from the axial data set and were submitted for review. All measurements were obtained according to NASCET criteria. A dose lowering technique was u tilized adhering to the principles of ALARA. COMPARISON STUDY: None FINDINGS: There is mild cardiomegaly with mild prominence of the pulmonary vasculature consistent wit h CHF. There is septal thickening and mild groundglass opacity in the lungs consistent with mild pulm onary edema. There is no pneumonia or pleural effusion. No pneumothorax. No enlarged adenopathy. No p ericardial effusion. There are coronary artery and aortic calcifications. No pulmonary embolism. Ther e is fatty liver. There are mild thoracic spine degenerative changes. There are a few subacute left-s ided anterior lateral rib fractures which are incompletely healed. No acute osseous findings seen. IMPRESSION: 1. No pulmonary embolism seen. 2. CHF with mild pulmonary edema. 3. Subacute incompletely healed left-sided rib fractures. No significant displacement seen at the fra ctures. No pneumothorax. ACT 112: Negative or not required by law. The above report was generated using voice recognition software. It may contain grammatical, syntax o r spelling errors. Electronically signed by: Anibal Meyers M.D. 06/03/2025 10:20 AM
--- NOTE | 2025-06-03 10:28 | Pre Anesthesia Assessment ---
Date of Service June 03, 2025 Pre Sedation Assessment Vital Signs Temp Pulse Resp BP Pulse Ox O2 Del Method O2 Flow Rate 06/03/25 10:05 86/60 L 06/03/25 10:00 91 H 31 H 06/03/25 10:00 83/59 L 06/03/25 09:57 96 H 21 93 Room Air 06/03/25 09:57 97 H 23 94 Nasal Cannula 4 06/03/25 09:57 94 Nasal Cannula 4 06/03/25 09:55 90/56 L 06/03/25 09:48 94 H 29 H 96 Room Air 06/03/25 09:46 84/59 L 06/03/25 09:26 89/67 L 06/03/25 09:23 85/53 L 06/03/25 09:21 90 23 97 Room Air 06/03/25 09:18 89 30 H 99 Room Air 06/03/25 09:16 69/49 L 06/03/25 09:05 83/53 L 06/03/25 09:05 83/53 L 06/03/25 09:03 91 H 21 99 Room Air 06/03/25 09:01 82/58 L 06/03/25 08:57 95 H 13 99 Room Air 06/03/25 08:47 36.4 C L 92 H 26 H 98/63 L 99 Room Air 06/03/25 08:46 96 H Cardiovascular Additional Comments: Regular rate and rhythm. Hypotensive. (Mild) Respiratory Additional Comments: Clear to auscultation bilaterally. No wheezing, rhonchi, or rales. Pre-Sedation Airway Assessment Smoking Status: Never smoker Mallampati 3 ASA 4 Notes The planned sedation has been discussed with the patient. Informed Consent was obtained. I have identified the patient, determined the appropriateness of sedation and have assessed the patient immediately prior to the procedure. All medicine(s) and interventions are by my order. [facility] [place] Procedure Codes (Charges) Indication for Procedure Indication for procedure: Non-ST elevation MD
[2025-06-03] MEDS: TICAGRELOR 90 MG TAB ONE (10:34)
--- NOTE | 2025-06-03 11:05 | Post Anesthesia Assessment ---
Date of Service June 03, 2025 Post Sedation Assessment Vital Signs Temp Pulse Resp BP Pulse Ox O2 Del Method O2 Flow Rate 06/03/25 10:51 Nasal Cannula 4 06/03/25 10:05 86/60 L 06/03/25 10:00 91 H 31 H 06/03/25 10:00 83/59 L 06/03/25 09:57 96 H 21 93 Room Air 06/03/25 09:57 97 H 23 94 Nasal Cannula 4 06/03/25 09:57 94 Nasal Cannula 4 06/03/25 09:55 90/56 L 06/03/25 09:48 94 H 29 H 96 Room Air 06/03/25 09:46 84/59 L 06/03/25 09:26 89/67 L 06/03/25 09:23 85/53 L 06/03/25 09:21 90 23 97 Room Air 06/03/25 09:18 89 30 H 99 Room Air 06/03/25 09:16 69/49 L 06/03/25 09:05 83/53 L 06/03/25 09:05 83/53 L 06/03/25 09:03 91 H 21 99 Room Air 06/03/25 09:01 82/58 L 06/03/25 08:57 95 H 13 99 Room Air 06/03/25 08:47 36.4 C L 92 H 26 H 98/63 L 99 Room Air 06/03/25 08:46 96 H Recovery Score Activity: Moves 4 extremities Respiration: Deep Breath/Cough Circulation: +/-20% PreAnes Value Consciousness: Arouseable (by name) Oxygen Saturation: O2 needed for >90% Discharge Sedation Level of Care: Phase I Post Sedation Plan On clinical assessment, the patient appears to have tolerated the sedation without complications. Patient is recovering as anticipated. Patient will continue to be monitored by nursing and may be discharged when sedation discharge criteria are met per below protocol. Upon Completions of procedure up to 15 minutes continue every 5 minute vital signs and the P.A.R. score; then discharge to a Phase I or Fast Track to Phase II per the following guidelines: * Discharge Patient to appropriate Phase II area if PAR is 8 or greater or return to pre- procedure baseline. The post - procedure orders will be as directed. * If PAR score is less than 8 or not return to pre-procedure baseline then patient will follow Phase I monitoring till PAR is reached for Phase II. The Phase I may be done in procedure room or may call to secure a Phase I area. * If naloxone or flumazenil are used for reversal, hold in Phase I for continued monitoring from when last reversal dose was given for a minimum of 60 minutes or longer pending the nurse and/or physician discretion of patient condition before discharge to Phase II. Please call the Sedation Physician to re-evaluate and complete post-note for discharge to Phase II area. Do NOT discharge from procedure sedation or Phase 1 until post- sedation evaluation note is complete by procedure /sedation MD Sedation Discharge Instructions to be given to the patient at discharge to home. [facility] [place] Procedure Codes (Charges) Indication for Procedure Indication for procedure: NSTEMI CHF Sedation/Anesthesia Procedure 1: Sedation/Anesthesia: 04150 Mod Sedation by the same physician;Init15 Min Child Age 5 & Up (Initial 15 minutes, start time 1043) Total Sedation Time (minutes): 19 Procedure 2: Sedation/Anesthesia: 13859 Mod Sedation by the same physician; Ea [id number] Minutes (Additional 4 minutes, and time 1102) Total Sedation Time (minutes): 19
[2025-06-03] MEDS: MIDAZOLAM HCL 1 MG/ML 2ML VIAL ONE (11:06)
[2025-06-03] MEDS: HEPARIN (PORCINE) 1000 UNIT/ML 10 ML (CATH LAB USE ONLY) ONE (11:06)
[2025-06-03] MEDS: NITROGLYCERIN/D5W 100MCG/ML 20ML SYR ONE (11:08)
[2025-06-03] MEDS: OPTIRAY 350 ONE (11:08)
[2025-06-03] MEDS: niCARdipine 2,000 MCG/20 ML SYR ONE (11:08)
[2025-06-03] MEDS: FUROSEMIDE 40 MG/4 ML VIAL IV ONE (11:08)
[2025-06-03] MEDS: PHENYLEPHRINE 100MCG/ML 5ML SYR ONE (11:09)
[2025-06-03] MEDS: PHENYLEPHRINE HCL 25 MG/250 ML NSS IV ONE (11:09)
[2025-06-03] MEDS: Heparin IV Adult Wt-Based Low-Dose w/ INITIAL Bolus Protocol IV STA (12:01)
--- NOTE | 2025-06-03 12:02 | Critical Care Consultation ---
Date of Consultation June 03, 2025 Assessment & Plan (1) Acute hypoxic respiratory failure: (2) NSTEMI (non-ST elevated myocardial infarction): (3) Acute exacerbation of congestive heart failure: (4) Elevated troponin: (5) Stress-induced cardiomyopathy: Plan Natalie Justin is a 69-year-old female with past medical history significant for hypertension, cardiac murmur with reported LV hypertrophy followed by Dr. Rolle, and fall in November 2024 with rib fractures; who presented to [facility] on 06/03/2025 with left chest pain activated as a heart alert. Cardiac cath showed no blockages and no intervention was performed. Patient required Bipap in laborer operator for hypoxia. Patient brought back to ICU post cath. Neuro: -No acute issues -Monitor -Imaging if indicated CV: NSTEMI; ALFREDO; elevated troponin; chest pain; Hx of HTN' takotsubo cardiomyopathy -ST depression in lateral leads -Troponin 356. Repeat pending. -cardiac cath with clean vessels. No intervention performed. -Given Lasix in laborer operator -TTE pending. Director Client reported signs of apical ballooning and hyperdynamic basal structures. -Will start beta lory and lasix 40mg bid. -On lisinopril at home. Holding post cath due to soft BP. Will consider restarting. -Cardiology following. Seen as an outpatient by Dr. Rolle. Pulm: Acute hypoxic respiratory failure related to likely cardiogenic pulmonary edema -Patient with SpO2 74%. Improved with Bipap. -Patient given lasix. Now on Nasal cannula. -CXR negative for acute findings. -CTA showed no PE with some mild pulmonary infiltrates concerning for edema -Maintain SpO2 > 92% GI: Nausea and vomiting possible medication induced v. other -Received 2 doses of zofran intraop -consider second line agent if needs immediate control Phenergan. -Cont PRN zofran : -No acute issues -Monitor renal function qam Heme: -Hgb/Hct 12.8/36.5 on admission -Monitor -Transfuse for Hgb < 7 Endo: -BG 112 in ED -Monitor and initiate hyperglycemia protocol if elevated. -Maintain BG 140-180 ID: -WBC 6.01 -Afebrile -Given ceftriaxone empirically in ED. Will hold on ABX at this time. -Monitor and culture as appropriate Prophylaxis: -SCD for mechanical DVT prophylaxis -Start DVT chemoprophylaxis tomorrow am. -GI prophylaxis not indicated. Disposition: ICU post cardiac cath for continued evaluation and management of chest pain/NSTEMI and hypoxia concerning for heart failure exacerbation. Patient is full code. Patient and her updated at bedside by ICU provider. I have personally spent 40 minutes of critical care time in the direct man agement of this patient. This is a life/limb threatening event. This includes time spent evaluating patient, direct bedside care, chart review, placing orders, interpretation of diagnostic studies, discussion with consultants, patient, and family members, as well as other required patient management activities. This time is exclusive of all separately billable procedures, and teaching time and separate from and in addition to any other critical care service time. Supervising Physician Co-Signing Physician Notes I saw and evaluated the patient with ANTHONY Alexandre, and agree with findings and plan as documented in the note. CTA chest 06/03/2025 personally reviewed: Interlobular thickening appreciated bilaterally upper and lower lobes No significant mediastinal lymphadenopathy Patient's family was in the room at the time of examination She was not in any distress She was saturating 94-95% on 4 L nasal cannula, weaned down to 2 L Still complained of retrosternal pain nonradiating. 5 out of 10 intensity. It was 10 out of 10 intensity when she came to the hospital Denied any reflux-like symptoms. Denies any significant stress in life. Patient does have anxious personality. She was worried little bit about the family gathering that was going to happen at her home in the near future Constitutional: No acute distress HEENT: EOMI, PERRLA Respiratory system: Decreased entry bilaterally, no wheeze, no rhonchi, positive crackles bilaterally CVS: S1-S2 positive, positive 2 out of 6 systolic murmur appreciated best at aorta Abdomen: Soft, nontender, nondistended, positive bowel sounds x4 Extremities: +2 pulses bilaterally radialis/ dorsalis pedis, no cyanosis, no edema, hematoma at the site of the cardiac cath in the right arm Neuro: Awake alert oriented x3 Psych: Normal mood and affect G/U: Positive [place] --Prophylaxis VTE: Heparin drip GI: Pantoprazole Lines: Peripheral Diet: Cardiac Plan: Strict ins and outs Try to wean the vasopressors off if possible Did get Lasix in the ER. Give Lasix as needed. Cardiac cath did not show coronary artery disease but did show EF reduced with possible Takotsubo Continue with beta-lory. Will add LUDWIN inhibitor which she takes 20 mg at home if the blood pressure permits. Pain medication and antiemetic as needed. Case was discussed with cardiology at bedside. Case was also discussed with family who are also at bedside. I have personally spent 42 minutes of critical care time in the direct management of this patient. This is a life/limb threatening event. This includes time spent evaluating patient, direct bedside care, chart review, placing orders, interpretation of diagnostic studies, discussion with consultants, patient, and family members, as well as other required patient management activities. This time is exclusive of all separately billable procedures, and teaching time and separate from and in addition to any other critical care service time. Please note the above document was generated using voice recognition software. It may contain grammatical, syntax or spelling errors. History of Present Illness Reason for Consultation: NSTEMI s/p cardiac cath Attending Physician: Srikanth Reyes MD History of Present Illness Natalie Justin is a 69-year-old female with past medical history significant for hypertension, cardiac murmur with reported LV hypertrophy followed by Dr. Rolle, and fall in November 2024 with rib fractures; who presented to [facility] on 06/03/2025 with left chest pain activated as a heart alert. The patient states she developed chest pain 2 days ago which was intermittent in nature. She awoke on the morning 0f with persistent left sided chest pain. EKG in the ED showed ST depressions in the lateral leads. Cardiology was consulted and patient taken to the laborer operator. Catheterization showed no occlusions of the coronary arteries and no intervention was performed. Patient was hypoxic in the laborer operator with SpO2 down to 74% and placed on Bipap. TR band placed to right radial access site and patient brought to the ICU post op for continued evaluation and management of chest pain and hypoxia concerning for heart failure exacerbation. Allergies Allergy/AdvReac Type Severity Reaction Status Date / Time meperidine Allergy Unknown Rash Verified 06/03/25 10:36 Home Medications Medication Instructions Recorded Confirmed Type metoprolol succinate 25 mg 25 mg PO QAM 01/22/19 06/03/25 History tablet,extended release 24 hr lisinopril 20 mg tablet 20 mg PO QAM 09/28/23 06/03/25 History rosuvastatin 5 mg tablet 5 mg PO QAM 09/28/23 06/03/25 History Patient History Medical History HTN (hypertension) Cardiac murmur Follows with Dr. Rolle Surgical History Hx of right cataract extraction History of Achilles tendon repair History of esophagogastroduodenoscopy (EGD) History of colonoscopy History of repair of anterior cruciate ligament Family History Other No family history of adverse response to anesthesia Social History Smoking Status: Never smoker Second Hand Exposure: No; Do You Dip or Chew Tobacco: No; Hx Alcohol Use: Yes Alcohol type: wine Hx Substance Use: No Preferred Language: Kiswahili Communication Ability: Effective Rigging Engineer Required: No Beliefs That Will Affect Care: None Current Living Situation: Spouse Other Information That Helps Us Care for You: No Feels Safe at Home: Yes Safety Concerns: Feels Safe At This Time Assistive Devices: None Review of Systems Review of Systems: All systems reviewed & are unremarkable except as noted in HPI & below Physical Exam Physical Exam: VITALS: Reviewed. WEIGHT/BMI reviewed. GEN: Healthy appearing, well-developed, NAD. PSYCH: Good Judgment. AOx3. Normal memory, mood, and affect. HEENT -Head: NC/AT; -Eyes: PERRL, EOMI. No discharge or redn ess; -Ears: External ears are normal. Normal TMs. -Nose: Normal nares. NECK: Supple, with no masses. CV: RRR, no m/r/g. LUNGS: CTAB, no w/r/c. ABD: Soft, NT/ND, NBS, no masses or organomegaly. : N/A SKIN: Warm, well perfused. No skin rashes or abnormal lesions. MSK: No deformities, Normal gait. EXT: No clubbing, cyanosis, or edema. NEURO: Normal muscle strength and tone. No focal deficits. Results & Data Results & Data Vital Signs (Past 12 Hours) Vital Signs Temp Pulse Resp BP Pulse Ox O2 Del Method O2 Flow Rate 06/03/25 11:05 92 H 28 H 95 06/03/25 10:51 Nasal Cannula 4 06/03/25 10:48 91 H 15 90 06/03/25 10:05 86/60 L 06/03/25 10:00 91 H 31 H 06/03/25 10:00 83/59 L 06/03/25 09:57 96 H 21 93 Room Air 06/03/25 09:57 97 H 23 94 Nasal Cannula 4 06/03/25 09:57 94 Nasal Cannula 4 06/03/25 09:55 90/56 L 06/03/25 09:48 94 H 29 H 96 Room Air 06/03/25 09:46 84/59 L 06/03/25 09:26 89/67 L 06/03/25 09:23 85/53 L 06/03/25 09:21 90 23 97 Room Air 06/03/25 09:18 89 30 H 99 Room Air 06/03/25 09:16 69/49 L 06/03/25 09:05 83/53 L 06/03/25 09:05 83/53 L 06/03/25 09:03 91 H 21 99 Room Air 06/03/25 09:01 82/58 L 06/03/25 08:57 95 H 13 99 Room Air 06/03/25 08:47 36.4 C L 92 H 26 H 98/63 L 99 Room Air 06/03/25 08:46 96 H FiO2 06/03/25 11:05 50 06/03/25 10:51 06/03/25 10:48 100 06/03/25 10:05 06/03/25 10:00 06/03/25 10:00 06/03/25 09:57 06/03/25 09:57 06/03/25 09:57 06/03/25 09:55 06/03/25 09:48 06/03/25 09:46 06/03/25 09:26 06/03/25 09:23 06/03/25 09:21 06/03/25 09:18 06/03/25 09:16 06/03/25 09:05 06/03/25 09:05 06/03/25 09:03 06/03/25 09:01 06/03/25 08:57 06/03/25 08:47 06/03/25 08:46 Critical Care Results & Data Vital Signs (Past 12 Hours) Vital Signs Temp Pulse Resp BP Pulse Ox O2 Del Method O2 Flow Rate 06/03/25 11:05 92 H 28 H 95 06/03/25 10:51 Nasal Cannula 4 06/03/25 10:48 91 H 15 90 06/03/25 10:05 86/60 L 06/03/25 10:00 91 H 31 H 06/03/25 10:00 83/59 L 06/03/25 09:57 96 H 21 93 Room Air 06/03/25 09:57 97 H 23 94 Nasal Cannula 4 06/03/25 09:57 94 Nasal Cannula 4 06/03/25 09:55 90/56 L 06/03/25 09:48 94 H 29 H 96 Room Air 06/03/25 09:46 84/59 L 06/03/25 09:26 89/67 L 06/03/25 09:23 85/53 L 06/03/25 09:21 90 23 97 Room Air 06/03/25 09:18 89 30 H 99 Room Air 06/03/25 09:16 69/49 L 06/03/25 09:05 83/53 L 06/03/25 09:05 83/53 L 06/03/25 09:03 91 H 21 99 Room Air 06/03/25 09:01 82/58 L 06/03/25 08:57 95 H 13 99 Room Air 06/03/25 08:47 36.4 C L 92 H 26 H 98/63 L 99 Room Air 06/03/25 08:46 96 H FiO2 06/03/25 11:05 50 06/03/25 10:51 06/03/25 10:48 100 06/03/25 10:05 06/03/25 10:00 06/03/25 10:00 06/03/25 09:57 06/03/25 09:57 06/03/25 09:57 06/03/25 09:55 06/03/25 09:48 06/03/25 09:46 06/03/25 09:26 06/03/25 09:23 06/03/25 09:21 06/03/25 09:18 06/03/25 09:16 06/03/25 09:05 06/03/25 09:05 06/03/25 09:03 06/03/25 09:01 06/03/25 08:57 06/03/25 08:47 06/03/25 08:46 Lab & Micro Results (Past 24 Hours) RBC 3.58 M/uL (4.20-5.40) L 06/03/25 WBC 6.01 K/ul (4.8-10.8) 06/03/25 Hgb 12.8 g/dl (12.0-16.0) 06/03/25 Hct 36.5 % (37.0-47.0) L 06/03/25 MCV 102.0 fL (80.0-100.0) H 06/03/25 MCH 35.8 pg (25.0-34.0) H 06/03/25 MCHC 35.1 g/dL (32.0-36.0) 06/03/25 RDW Standard Deviation 45.6 fL (36.4-46.3) 06/03/25 RDW Coefficient of Variation 12.1 % (11.5-14.5) 06/03/25 Plt Count 149 K/uL (130-400) 06/03/25 MPV 9.2 fL (9.4-12.4) L 06/03/25 Neutrophils (%) (Auto) 71.5 % 06/03/25 Lymphocytes (%) (Auto) 18.8 % 06/03/25 Monocytes # (Auto) 0.42 K/uL (0.11-0.59) 06/03/25 Eosinophils # (Auto) 0.04 K/uL (0.00-0.50) 06/03/25 Immature Granulocyte % (Auto) 1.0 % 06/03/25 Neutrophils # (Auto) 4.30 K/uL (1.40-6.50) 06/03/25 Lymphocytes # (Auto) 1.13 K/uL (1.20-3.40) L 06/03/25 Monocytes # (Auto) 0.42 K/uL (0.11-0.59) 06/03/25 Eosinophils # (Auto) 0.04 K/uL (0.00-0.50) 06/03/25 Basophils # (Auto) 0.06 K/uL (0.00-0.20) 06/03/25 Immature Granulocyte # (Auto) 0.06 K/uL (0.01-0.20) 5 Na 131 mmol/L (136-145) L 06/03/25 K 4.6 mmol/L (3.5-5.1) 06/03/25 Cl 94 mmol/L (98-107) L 06/03/25 CO2 23 mmol/L (21-32) 06/03/25 Anion Gap 14 (3-11) H 06/03/25 BUN 11 mg/dl (6-23) 06/03/25 Creatinine 0.93 mg/dl (0.6-1.2) 06/03/25 BUN/Creatinine Ratio 11.8 (10-20) 06/03/25 Glu 112 mg/dl (70-99(Fasting)) H 06/03/25 Ca 9.4 mg/dl (8.6-10.3) 06/03/25 Total Bilirubin 1.5 mg/dl (0.2-1.0) H 06/03/25 AST 168 U/L (13-39) H 06/03/25 ALT 41 U/L (7-52) 06/03/25 Alkaline Phosphatase 61 U/L (34-104) 06/03/25 TP 6.8 gm/dl (6.0-8.3) 06/03/25 Albumin 4.4 gm/dl (3.4-5.0) 06/03/25 Globulin 2.4 gm/dl (2.5-4.0) L 06/03/25 Albumin/Globulin Ratio 1.8 (0.9-2) 06/03/25 Calcium Level 9.4 mg/dl (8.6-10.3) 06/03/25 08:51 Prothromb Time International Ratio 1.0 (0.9-1.1) 06/03/25 09:1 8 Diagnostic Findings (Past 24 Hours) Chest X-Ray 06/03/25 08:41 XR chest 1V portable CLINICAL HISTORY: Chest pain, nonspecific COMPARISON STUDY: None FINDINGS: Heart size and pulmonary vasculature are normal. No consolidation or pleural effusion. No pneumothorax. IMPRESSION: No acute findings. ACT 112: Negative or not required by law. Electronically signed by: Anibal Meyers M.D. 06/03/2025 9:05 AM Abdomen/Pelvis CT 06/03/25 09:19 CT SCAN OF THE ABDOMEN AND PELVIS WITH IV CONTRAST CLINICAL HISTORY: Left-sided chest pain. COMPARISON STUDY: MRI of the pelvis October 09, 2006. TECHNIQUE: Following the IV administration of 112 cc of Optiray 320, CT scan of the abdomen and pelvis is performed from the lung bases to the proximal femora. Images are reviewed in the axial, sagittal, and coronal planes. IV contrast was administered without complication. A dose lowering technique was utilized adhering to the principles of ALARA. FINDINGS: Please note that the chest CT will be reported separately. Multiple healing anterior left-sided rib fractures are better depicted on that exam. Interlobular septal thickening is noted. No pneumatosis, free air or portal venous gas is identified. There is hepatic steatosis. There are no hepatic lesions. No biliary or pancreatic ductal dilatation is present. Spleen and adrenal glands are unremarkable. There is no peripancreatic infiltration. No hydronephrosis. Several cystic lesions within the pancreas measure up to 1.7 cm. These are cysts within the pancreatic body on image 86 of 361. No enhancing pancreatic lesions are present. There is no evidence for a bowel obstruction. The caliber and wall thickness of small and large bowel are normal. Mild mesenteric stranding is of doubtful significance. Multiple peripherally calcified fibroids measure up to 7.4 cm. These have decreased in size since MRI of October 09, 2006. Bladder wall thickening is accentuated by underdistention. There is no lymphadenopathy. There are no fluid collections. IMPRESSION: 1. No acute process within the abdomen or pelvis. 2. Hepatic steatosis. 3. Multiple calcified fibroids, decreased in size since MRI of October 09, 2006. 4. Several cystic pancreatic lesions measure up to 1.7 cm. These are likely benign and favor side branch IPMNs. A follow-up pancreatic protocol MRI in 6 months to ensure stability is recommended. 5. Interstitial pulmonary edema within the lung bases. Multiple healing left- sided rib fractures better depicted on the chest CT which will be reported separately. ACT 112: Negative or not required by law. Electronically signed by: Eddie Dinh M.D. 06/03/2025 10:09 AM Chest CTA 06/03/25 09:19 CT angio chest PE protocol CT DOSE: 1394.05 mGy.cm HISTORY: PE. TECHNIQUE: Multiple CTA images of the chest were obtained after the intravenous administration of 112 ml Optiray. Coronal and sagittal MIPS were obtained from the axial data set and were submitted for review. All measurements were obtained according to NASCET criteria. A dose lowering technique was utilized adhering to the principles of ALARA. COMPARISON STUDY: None FINDINGS: There is mild cardiomegaly with mild prominence of the pulmonary vasculature consistent with CHF. There is septal thickening and mild groundglass opacity in the lungs consistent with mild pulmonary edema. There is no pneumonia or pleural effusion. No pneumothorax. No enlarged adenopathy. No pericardial effusion. There are coronary artery and aortic calcifications. No pulmonary embolism. There is fatty liver. There are mild thoracic spine degenerative changes. There are a few subacute left-sided anterior lateral rib fractures which are incompletely healed. No acute osseous findings seen. IMPRESSION: 1. No pulmonary embolism seen. 2. CHF with mild pulmonary edema. 3. Subacute incompletely healed left-sided rib fractures. No significant displacement seen at the fractures. No pneumothorax. ACT 112: Negative or not required by law. The above report was generated using voice recognition software. It may contain grammatical, syntax or spelling errors. Electronically signed by: Anibal Meyers M.D. 06/03/2025 10:20 AM I & O Totals 24 Hours 06/02/25 06/03/25 06/04/25 06:59 06:59 06:59 Intake Total 2027. / 2027. Balance 2027. / 2027. Cumulative 06/03/25 08:36 thru 06/03/25 12:01 Intake Total 2027. Balance 2027. RT Ventilator Mngmt (Last Documented) Ventilator Ordered Settings Respiratory Rate 28 06/03/25 11:05 Fraction of Inspired Oxygen 50 06/03/25 11:05 Ventilator - PT Measurements Respiratory Rate 28 Coding Level of Care Code 94102 CRITICAL CARE 1ST 30-74M Diagnoses Acute hypoxic respiratory failure J96.01 NSTEMI (non-ST elevated myocardial infarction) I21.4 Acute exacerbation of congestive heart failure I50.9 Elevated troponin R79.89 Stress-induced cardiomyopathy I51.81
[2025-06-03] MEDS: PROMETHAZINE 12.5 MG/50.5 ML BAG IV PRN (13:38)
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
[2025-06-03] MEDS: METOPROLOL TARTRATE 25 MG TAB PO SCH (14:33)
--- NOTE | 2025-06-03 16:21 | Cardiac Catheterization ---
[facility] Data: E/M Engineer Cardiac Status Clinical evaluation leading to the procedure CAD Presenation: Unstable angina Anginal Classification: CCS IV Heart Failure: NYHA Class: CCS IV Cardiogenic Shock within 24 Hours: Yes (Borderline) Cardiac Arrest within 24 Hours: No Imaging Studies Past 6 Months: No Stress Studies Past 6 Months: No Coronary Anatomy Dominant: Right Left Main (% Stenosis): Normal LAD (% Stenosis): Mid (Calcified less than 20%) D1 (% Stenosis): Normal Circumflex (% Stenosis): Normal OM1 (% Stenosis): Normal OM2 (% Stenosis): Normal RCA (% Stenosis): Normal R PDA (% Stenosis): Normal R PL1 (% Stenosis): Normal Diagnostic Physicians Name: Cornell Bey MD, PhD Closure Device Percutaneous Entry Location: Radial Closure Device: Radial Band Recommendations: Medical Therapy and/or Counseling Cardiac Cath Procedure Full Procedure Date June 03, 2025 Pre-Procedure Diagnosis Pre-Procedure Diagnosis: Acute Coronary Syndrome AUC Score AUC Score: 09 Post-Procedure Diagnosis Post-Procedure Diagnosis: Mild CAD Procedure(s) Performed Procedure(s) Performed: Coronary Angiography Director Medical Science Cornell Bey MD, PhD Estimated Blood Loss Estimated Blood Loss: Less than 5 cc Medication(s) Medication(s): Fentanyl, Heparin, Lidocaine 1%, Arnulfo-Synephrine and Versed Medication(s): Lasix Summary of Findings Brief description: Patient was brought emergently to the cardiac catheterization suite where she was shaved and prepped in a sterile fashion. Sedated using IV Versed and fentanyl. Soft tissues of the right wrist were anesthetized using 2 mL of 1% Xylocaine. Right radial artery was accessed with a modified Seldinger technique and a 6 [place] radial artery glide sheath was placed. Patient was provided anticoagulation with IV heparin. No antispasmodics given that she had low systolic blood pressure. Initial catheters were advanced over a 0.035 Wholey wire. Then catheters were exchanged over a 0.035 J-tip wire. Left coronary angiography in orthogonal views with a 6 [place] EBU 3.0 guide catheter. Right coronary angiography in orthogonal disease 6 [place] JR4 guide catheter. Catheters were removed. Radial artery sheath was removed. Hemostasis was obtained using the vascular band. Patient was hemodynamically stable and asymptomatic. She was sent to the recovery area with plans for admission to the ICU. Note: Patient required hemodynamic support with phenylephrine and respiratory support with BiPAP. She was given Lasix for congestive heart failure with pulmonary edema and hypoxia. Coronary angiography findings: QMT-amelv-acxegho vessel bifurcating into LAD and circumflex. No disease. LAD-this is large caliber and transapical. Gives a large first diagonal. Proximal vessel has mild irregularities, mid vessel with calcified less than 20% stenosis. Distal LAD without disease. JAt-iycva-lwnhnmi and nondominant. Travels in the AV groove where it gives a large OM1 and a large OM 2. The circumflex and its branches have no disease. QDC-youts-cazmfex vessel which is dominant. Bifurcates distally into the large posterolateral and a large PDA. There is no angiographically evident disease in the RCA or its branches. Summary: 1. Normal epicardial coronary arteries with only very mild disease in the mid LAD. 2. Continue hemodynamic support with phenylephrine drip, respiratory support with BiPAP, and continue to diurese. Additional medical management per primary cardiology team as well as the ICU service. Hemodynamics Rest Ao:: 82/54 mmHg Final Ao: 81/47 mmHg LV: Not performed Recommendations Recommendations: Medical Therapy and/or Counseling Radiation Exposure (mGy) 534 mGy, fluoroscopy time 2.3 minutes Contrast (mls) 80 cc Anesthesia 1 mg Versed, 25 mcg fentanyl IV. Start time 1043, end time 1102 Procedural Complication(s) None Disposition ICU I attest to the content of the Intraoperative Record and any orders documented therein. Any exceptions are noted below. [facility] Card Cath Procedure Codes Cardiac Catheterization Procedure 1: Cardiovascular Cath Procedures: 68970 Coronaries Moderate Sedation Procedure 1: Sedation/Anesthesia: 13349 Mod Sedation by the same physician;Init15 Min Child Age 5 & Up (Initial 15 minutes, start time 1043) Procedure 2: Sedation/Anesthesia: 73260 Mod Sedation by the same physician; Ea [id number] Minutes (Additional 4 minutes, end time 1102) PG Care Time/CCT Total # of Minutes Spent Total Time Spent with Patient: Total time spent is greater than 50% in coordination of care (as documented) at patient's floor/unit and/or counseling patient:
[2025-06-03] MEDS ORDERED: Heparin IV Adult Wt-Based Standard *NO* INITIAL Bolus Protocol IV STA (16:53)
[2025-06-03] MEDS: HEPARIN 25000 UNIT/500 ML D5W IV ONE (17:13)
[2025-06-03] MEDS ORDERED: STAT IV Infusion **Titration per Protocol STA (17:57)
[2025-06-03] MEDS: PHENYLEPHRINE/NSS 25 MG/250 ML BAG IV SCH (18:06)
[2025-06-03] MEDS ORDERED: FUROSEMIDE INJ 20 MG/2 ML VIAL IV SCH (21:00)
[2025-06-03 23:40] LABS: ANTI-Xa, UFH(UnfractionatedHep 0.80 IU/ml (0.3-0.7)
[2025-06-04 06:34] LABS: Anion Gap 9.0 (3-11); Blood Urea Nitrogen 12.0 mg/dl (6-23); Calcium 7.9 mg/dl (8.6-10.3); Carbon Dioxide 25.0 mmol/L (21-32); Chloride 97.0 mmol/L (98-107); Creatinine Clr Calc Pharmacy 50.1 ml/min; Glucose 125.0 mg/dl (70-99(Fasting)); Potassium 4.1 mmol/L (3.5-5.1); Sodium 131.0 mmol/L (136-145)
[2025-06-04 06:57] LABS: Magnesium 1.6 mg/dl (1.7-2.4)
[2025-06-04] MEDS: ICU ELECTROLYTE REPLACEMENT PROTOCOL SCH (07:05)
[2025-06-04 07:18] LABS: ANTI-Xa, UFH(UnfractionatedHep 1.39 IU/ml (0.3-0.7)
[2025-06-04] MEDS: MAGNESIUM SULFATE / D5W 1 GM/100 ML BAG IV SCH (07:33)
--- NOTE | 2025-06-04 08:30 | Critical Care Progress Note ---
Date of Service June 04, 2025 Assessment & Plan (1) Acute hypoxic respiratory failure: (2) NSTEMI (non-ST elevated myocardial infarction): (3) Acute exacerbation of congestive heart failure: (4) Elevated troponin: (5) Stress-induced cardiomyopathy: Plan Natalie Justin is a 69-year-old female with past medical history significant for hypertension, cardiac murmur with reported LV hypertrophy followed by Dr. Rolle, and fall in November 2024 with rib fractures; who presented to [facility] on 06/03/2025 with left chest pain activated as a heart alert. Cardiac cath showed no blockages and no intervention was performed. 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 Patient brought back to ICU post cath. Neuro: CAM ICU: Negative -No acute issues CV: 2D echo 06/03/2025: EF 30 to 35%, akinesis in expansion of the apical segment of the ventricle with hyperdynamic basilar segments, moderate MR, mild TR -- NSTEMI --> Takotsubo cardiomyopathy with cardiogenic shock -ST depression in lateral leads S/p cardiac cath 06/04/2025 with clean vessels. No intervention performed.. Continue with vasopressor support to keep MAP greater than 65, usually in Takotsubo there is increased catecholamine surge. Try to avoid vasopressors with high catecholamines Currently on phenylephrine --History of hypertension Metoprolol succinate 25 mg as well as lisinopril 20 mg at home Pulm: CTA chest 06/03/2025 personally reviewed: Interlobular thickening appreciated bilaterally upper and lower lobes No significant mediastinal lymphadenopathy -- Acute hypoxic respiratory failure Secondary to cardiogenic with pulmonary edema Continue with O2 supplementation to keep O2 saturation between 92-93% BiPAP nightly and as needed shortness of breath GI: -- Nausea and vomiting Antiemetics as needed AST/ALT/alk phos within normal limits Renal: -- Monitor BUNs/creatinine Avoid nephrotoxic medications Heme: -- Monitor H&H Endo: -- ICU hyperglycemia protocol ID: -WBC 6.01 -Afebrile -Given ceftriaxone empirically in ED. Will hold on ABX at this time. -Monitor and culture as appropriate --Prophylaxis VTE: Heparin drip GI: Pantoprazole Lines: Peripheral Diet: Cardiac Plan: In/out: +2.1 L, urine output 1550 Try to wean the vasopressors off if possible while keeping the MAP around 65 and SBP greater than 90 I will try to get lactate level to see how the perfusion is, the need for phenylephrine is increasing I will add midodrine 5 mg 3 times daily to the regimen to see if I am able to get phenylephrine off. Magnesium is being replaced Repeat echo has been ordered by cardiology, if there is any worsening in the EF then mechanical support could be thought of Case discussed with cardiology I have personally spent 35 minutes of critical care time in the direct management of this patient. This is a life/limb threatening event. This includes time spent evaluating patient, direct bedside care, chart review, placing orders, interpretation of diagnostic studies, discussion with consultants, patient, and family members, as well as other required patient management activities. This time is exclusive of all separately billable procedures, and teaching time and separate from and in addition to any other critical care service time. Please note the above document was generated using voice recognition software. It may contain grammatical, syntax or spelling errors. Admission and Anticipated Discharge Date Admission Date: June 03, 2025 Subjective Patient seen and examined at bedside. No acute distress, no adverse events overnight Still complaining of some retrosternal chest pain which is 3 out of 10 in intensity Denied any nausea. Shortness of breath is improved She was saturating well on room air She was on 0.7 of phenylephrine Review of Systems 2 Review of Systems: All systems reviewed & are unremarkable except as noted in Subjective Physical Exam 2 Physical Exam: Constitutional: No acute distress HEENT: EOMI, PERRLA Respiratory system: Decreased entry bilaterally, no wheeze, no rhonchi, positive crackles bilaterally CVS: S1-S2 positive, positive 2 out of 6 systolic murmur appreciated best at the left parasternal border Abdomen: Soft, nontender, nondistended, positive bowel sounds x4 Extremities: +2 pulses bilaterally radialis/ dorsalis pedis, no cyanosis, no edema, hematoma ventral surface of the right arm Neuro: Awake alert oriented x3 Psych: Normal mood and affect G/U: Positive [place] Skin: no rashes, warm and dry Lymphatic: no cervical or axillary lymphadenopathy Results & Data Results & Data Vital Signs (Past 12 Hours) Vital Signs Temp Pulse Resp BP Pulse Ox O2 Del Method O2 Flow Rate 06/04/25 05:00 37.6 C H 82 15 94/58 L 94 Nasal Cannula 2 06/04/25 04:55 89/62 L 06/04/25 04:35 77/50 L 06/04/25 04:00 37.5 C 84 17 92/57 L 93 Nasal Cannula 2 06/04/25 03:09 37.5 C 85 16 95/64 L 95 Nasal Cannula 2 06/04/25 02:00 37.4 C 81 18 116/72 95 Nasal Cannula 2 06/04/25 01:00 37.5 C 77 14 122/73 97 Nasal Cannula 2 06/04/25 00:17 79 06/04/25 00:00 37.4 C 76 14 116/69 96 Nasal Cannula 2 06/03/25 23:06 37.4 C 77 22 130/75 97 Nasal Cannula 2 06/03/25 22:00 37.2 C 74 18 126/76 97 Nasal Cannula 2 06/03/25 21:00 37.4 C 74 20 129/79 97 Nasal Cannula 2 Laboratory Results 06/03/25 08:51 06/04/25 05:54 Coding Level of Care Code 53234 CRITICAL CARE 1ST 30-74M Diagnoses Acute hypoxic respiratory failure J96.01 NSTEMI (non-ST elevated myocardial infarction) I21.4 Acute exacerbation of congestive heart failure I50.9 Elevated troponin R79.89 Stress-induced cardiomyopathy I51.81
--- NOTE | 2025-06-04 09:00 | Cardiology Progress Note ---
Date of Service June 04, 2025 Assessment & Plan (1) Cardiomyopathy: Plan: See below Plan * 69-year-old female presenting with several days of malaise + chest pain + dyspnea; elevated troponin (>300) and significant ST segment/T wave inversion on EKG. * Echocardiogram c/w potential Tako Tsubo * Coronary angiography without obstructive disease. * Marginal Systemic BP * Neosynephrine started to address potential LVOT dynamic gradient Plans: * Repeat Limited ECHO * STOP Beta blockers * Wean Norepi to OFF * If Norepi requirements persist, consider Arterial Line and PICC to run Norepi centrally * Mobilize * Patient appears euvolemic * No further diuresis * K+ goal 4.5-5 * Kdur 40 meq po X 1 * Mag goal >2 * 4 gm of magnesium Sulfate IV * Continue Heparin until ECHO results reviewed * Check Respiratory Viral Panel * Aggressive supportive care Abner Basurto Admission and Anticipated Discharge Date Admission Date: June 03, 2025 Subjective Events Overnight: * Neosynephrine restarted Subjective: * No angina reported * No fevers * No dysuria Review of Systems Review of Systems: All systems reviewed & are unremarkable except as noted in HPI & below Physical Exam Physical Exam: No elevation in JVP S1S2 3/6 Systolic Murmur at base + LLSB; 2/6 HSM at apex CTA B on anterior exam No C/C/E Warm and well-perfused Neuro - intact Results & Data Vital Signs (Past 12 Hours) Vital Signs Temp Pulse Resp BP Pulse Ox O2 Del Method O2 Flow Rate 06/04/25 08:00 92 H 06/04/25 05:00 37.6 C H 82 15 94/58 L 94 Nasal Cannula 2 06/04/25 04:55 89/62 L 06/04/25 04:35 77/50 L 06/04/25 04:00 37.5 C 84 17 92/57 L 93 Nasal Cannula 2 06/04/25 03:09 37.5 C 85 16 95/64 L 95 Nasal Cannula 2 06/04/25 02:00 37.4 C 81 18 116/72 95 Nasal Cannula 2 06/04/25 01:00 37.5 C 77 14 122/73 97 Nasal Cannula 2 06/04/25 00:17 79 06/04/25 00:00 37.4 C 76 14 116/69 96 Nasal Cannula 2 06/03/25 23:06 37.4 C 77 22 130/75 97 Nasal Cannula 2 06/03/25 22:00 37.2 C 74 18 126/76 97 Nasal Cannula 2 06/03/25 21:00 37.4 C 74 20 129/79 97 Nasal Cannula 2 Laboratory Results Cardiac Enzymes 06/03/25 06/03/25 Range/Units 08:51 11:58 AST 168 H (13-39) U/L Troponin I High Sens 356.8 H* 303.9 H* (0-14) pg/ml Coagulation 06/03/25 06/03/25 Range/Units 08:51 09:18 PT Cancelled 11.2 APTT Cancelled 26 CBC 06/03/25 Range/Units 08:51 WBC 6.01 (4.8-10.8) K/ul RBC 3.58 L (4.20-5.40) M/uL Hgb 12.8 (12.0-16.0) g/dl Hct 36.5 L (37.0-47.0) % Plt Count 149 (130-400) K/uL Neut # (Auto) 4.30 (1.40-6.50) K/uL Lymph # (Auto) 1.13 L (1.20-3.40) K/uL [place] # (Auto) 0.42 (0.11-0.59) K/uL Eos # (Auto) 0.04 (0.00-0.50) K/uL Baso # (Auto) 0.06 (0.00-0.20) K/uL Comprehensive Metabolic Panel 06/03/25 06/04/25 Range/Units 08:51 05:54 Sodium 131 L 131 L (136-145) mmol/L Potassium 4.6 4.1 (3.5-5.1) mmol/L Chloride 94 L 97 L (98-107) mmol/L Carbon Dioxide 23 25 (21-32) mmol/L BUN 11 12 (6-23) mg/dl Creatinine 0.93 1.03 (0.6-1.2) mg/dl Glucose 112 H 125 H (70-99(Fasting)) mg/dl Calcium 9.4 7.9 L (8.6-10.3) mg/dl AST 168 H (13-39) U/L ALT 41 (7-52) U/L Alkaline Phosphatase 61 (34-104) U/L Total Protein 6.8 (6.0-8.3) gm/dl Albumin 4.4 (3.4-5.0) gm/dl Intake and Output 06/03/25 06/04/25 06/04/25 22:59 06:59 14:59 Intake Total 666.600 / 3682.801 754.601 / 3682.801 189.933 / 189.933 Output Total 1125 / 1550 425 / 1550 Balance -458.400 / 2132.801 329.601 / 2132.801 189.933 / 189.933 Intake: IV 166.600 / 2682.801 254.601 / 2682.801 189.933 / 189.933 Heparin 86059 Unit/500 ml D5w 25.3 / 252.900 104.267 / 252.900 130.666 / 130.666 25,000 units In 500 ml @ 1,000 UNITS/HR 20 mls/hr IV .Q24H [facility] Rx#:[id number] Phenylephrine/Nss 25 mg In 250 90.800 / 300.401 150.334 / 300.401 59.267 / 59.267 ml @ 0.7 MCG/KG/MIN 27.972 mls/ hr IV .Q8H57M [facility] Rx#:[id number] Promethazine 12.5 mg In 50.5 ml 50.5 / 101.0 @ 202 mls/hr IV Q6H PRN Rx#: [id number] Oral 500 / 1000 500 / 1000 Output: Urine Amount (Catheter) 1125 / 1550 425 / 1550 [place]/Indwelling 1125 / 1550 425 / 1550 Other: Weight 72.6 kg Weight Measurement Method Built in [facility] Diagnostic Findings ECHOcardiogram: 06-03-2025 * LVEF 30-35% * LV apical ballooning * Moderate MR * No significant EKG - Anterior T wave inversions Cardiac Cath - 06-03-2025 CAD Presenation: Unstable angina Anginal Classification: CCS IV Heart Failure: NYHA Class: CCS IV Cardiogenic Shock within 24 Hours: Yes (Borderline) Cardiac Arrest within 24 Hours: No Imaging Studies Past 6 Months: No Stress Studies Past 6 Months: No Coronary Anatomy Dominant: Right Left Main (% Stenosis): Normal LAD (% Stenosis): Mid (Calcified less than 20%) D1 (% Stenosis): Normal Circumflex (% Stenosis): Normal OM1 (% Stenosis): Normal OM2 (% Stenosis): Normal RCA (% Stenosis): Normal R PDA (% Stenosis): Normal R PL1 (% Stenosis): Normal Medications Administered Current Inpatient Medications Promethazine HCl (Phenergan) 12.5 mg in 50.5 mls @ 202 mls/hr IV Q6H PRN PRN Reason: Nausea And Vomiting Stop: 07/03/25 13:23 Last Infusion: 06/03/25 22:00 Dose: Infused Heparin Sodium/Dextrose (Heparin 06806 Unit/500 Ml D5w) 25,000 units in 500 mls @ 0 mls/hr IV .Q0M [facility]; Protocol Stop: 07/03/25 17:14 Last Titration: 06/04/25 07:22 Dose: 0 units/hr, 0 mls/hr Phenylephrine HCl (Phenylephrine/Nss) 25 mg in 250 mls @ 27.972 mls/hr IV .Q8H57M [facility]; Protocol Stop: 07/03/25 17:59 Last Titration: 06/04/25 07:00 Dose: 0.7 mcg/kg/min, 28 mls/hr Magnesium Sulfate/Dextrose (Magnesium Sulfate / D5w) 1 gm in 100 mls @ 50 mls/hr IV Q2H [facility] Stop: 06/04/25 15:14 Last Admin: 06/04/25 07:33 Dose: 50 mls/hr Metoprolol Tartrate (Metoprolol Tartrate 25 Mg Tab) 12.5 mg PO BID [facility] Stop: 07/03/25 20:59 Last Admin: 06/03/25 20:08 Dose: 12.5 mg Miscellaneous (Icu Electrolyte Replacement Protocol) 1 each N/A BID@06,18 [facility]; Protocol Stop: 06/11/25 05:59 Last Admin: 06/04/25 07:05 Dose: 1 each Pantoprazole Sodium (Pantoprazole 40 Mg Tab) 40 mg PO QAM [facility] Stop: 07/03/25 16:59 Last Admin: 06/03/25 18:09 Dose: 40 mg PG Care Time/CCT Total # of Minutes Spent Total Time Spent with Patient: Total time spent is greater than 50% in coordination of care (as documented) at patient's floor/unit and/or counseling patient: Coding Level of Care Code 82622 SUB INP/OBS CARE MIN Diagnoses Cardiomyopathy I42.9
[2025-06-04 09:10] LABS: ANTI-Xa, UFH(UnfractionatedHep 0.67 IU/ml (0.3-0.7)
--- NOTE | 2025-06-04 10:11 | Hospitalist Progress Note ---
Date of Service June 04, 2025 Assessment & Plan (1) NSTEMI (non-ST elevated myocardial infarction): Plan: Patient was brought to the hospital on account of chest pain radiating to the left shoulder. EKG x 2 done in the ED showed ST depression. 2D echo showed evidence of apical ballooning, probably chronic from a previous hx of takotsubo He is s/p Cardiac catheter which showed clean coronaries and no interventions were done. 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 Physical Exam Physical Exam: The patient is awake, alert and oriented 3, well developed and well nourished, normocephalic and atraumatic, lying in bed and in no acute distress. HEENT--PERRL, EOMI, mucous membranes and oropharynx mildly dry Neck--supple. No JVD. No bruits. Thyroid normal, trachea midline, no adenopathy. Heart--normal S1 and S2. No murmurs, rubs or gallops. Lungs--clear bilaterally, no respiratory distress, no accessory muscle use. Abdomen--normal bowel sounds and soft. Extremities--no cyanosis or clubbing. No edema. Dermatologic--normal skin turgor, normal color, no abnormal lymph nodes, no rash. Neurologic--cranial nerves II through XII grossly intact. Rheumatologic--normal range of motion. Psychiatric--normal affect. Results & Data Results & Data Vital Signs (Past 12 Hours) Vital Signs Temp Pulse Resp BP Pulse Ox O2 Del Method O2 Flow Rate 06/04/25 08:00 92 H 06/04/25 05:00 99.7 F H 82 15 94/58 L 94 Nasal Cannula 2 06/04/25 04:55 89/62 L 06/04/25 04:35 77/50 L 06/04/25 04:00 99.5 F 84 17 92/57 L 93 Nasal Cannula 2 06/04/25 03:09 99.5 F 85 16 95/64 L 95 Nasal Cannula 2 06/04/25 02:00 99.3 F 81 18 116/72 95 Nasal Cannula 2 06/04/25 01:00 99.5 F 77 14 122/73 97 Nasal Cannula 2 06/04/25 00:17 79 06/04/25 00:00 99.3 F 76 14 116/69 96 Nasal Cannula 2 06/03/25 23:06 99.3 F 77 22 130/75 97 Nasal Cannula 2 PG Care Time/CCT Total # of Minutes Spent Total Time Spent with Patient: Total time spent is greater than 50% in coordination of care (as documented) at patient's floor/unit and/or counseling patient: Coding Level of Care Code 64387 SUB INP/OBS CARE 2/35MIN Diagnoses NSTEMI (non-ST elevated myocardial infarction) I21.4 Hypertension I10 Acute hypoxic respiratory failure J96.01 Stress-induced cardiomyopathy I51.81 Time Spent (min) 35
[2025-06-04] MEDS: MIDODRINE HCL 2.5 MG TAB PO SCH (11:28)
[2025-06-04 11:50] LABS: Chlamydia pneumoniae PCR Not Detected (NotDetected); Coronavirus 229E PCR Not Detected (NotDetected); Coronavirus CoV-2 (COVID19)PCR Not Detected (NotDetected); Coronavirus HKU1 PCR Not Detected (NotDetected); Coronavirus NL63 PCR Not Detected (NotDetected); Coronavirus OC43PCR Not Detected (NotDetected); Human Metapneumovirus PCR Not Detected (NotDetected); Parainfluenza Virus 1 PCR Not Detected (NotDetected); Parainfluenza Virus 2 PCR Not Detected (NotDetected); Parainfluenza Virus 3 PCR Not Detected (NotDetected); Parainfluenza Virus 4 PCR Not Detected (NotDetected); Respiratory Syncytial VirusPCR Not Detected (NotDetected); Rhinovirus/Enterovirus PCR Not Detected (NotDetected)
[2025-06-04] MEDS: ALBUMIN 5% 250 ML IV ONE (15:12)
[2025-06-04 16:37] LABS: Anion Gap 11.0 (3-11); Blood Urea Nitrogen 11.0 mg/dl (6-23); Calcium 8.2 mg/dl (8.6-10.3); Carbon Dioxide 21.0 mmol/L (21-32); Chloride 96.0 mmol/L (98-107); Creatinine Clr Calc Pharmacy 51.1 ml/min; Glucose 141.0 mg/dl (70-99(Fasting)); Potassium 3.8 mmol/L (3.5-5.1); Sodium 128.0 mmol/L (136-145)
[2025-06-04 16:38] LABS: Appearance Urine Clear (Clear); Bacteria Urine Automated 4+ (None Seen); Cast Urine Automated 0-2 /lpf (0-2); Epithelial Cell Urine Auto 0-2 /hpf (0-2); Glucose Urine UA Negative (Negative); RBC Urine Automated 0-2 /hpf (0-2)
[2025-06-04 16:44] LABS: ANTI-Xa, UFH(UnfractionatedHep 0.53 IU/ml (0.3-0.7)
[2025-06-04 18:45] LABS: Magnesium 3.0 mg/dl (1.7-2.4)
[2025-06-04] MEDS: POTASSIUM CHLORIDE CRTAB 20 MEQ TABCR PO SCH (19:36)
[2025-06-04] MEDS: cefTRIAXone SODIUM 1,000 MG/50 ML BAG IV SCH (19:36)
[2025-06-04] MEDS: MELATONIN 3 MG TAB PO PRN (22:01)
[2025-06-05 05:05] LABS: Anion Gap 9.0 (3-11); Blood Urea Nitrogen 11.0 mg/dl (6-23); Calcium 7.7 mg/dl (8.6-10.3); Carbon Dioxide 20.0 mmol/L (21-32); Chloride 99.0 mmol/L (98-107); Creatinine Clr Calc Pharmacy 58.7 ml/min; Glucose 115.0 mg/dl (70-99(Fasting)); Magnesium 2.5 mg/dl (1.7-2.4); Potassium 4.5 mmol/L (3.5-5.1); Sodium 128.0 mmol/L (136-145)
[2025-06-05 05:09] LABS: ANTI-Xa, UFH(UnfractionatedHep 0.56 IU/ml (0.3-0.7)
[2025-06-05 06:34] LABS: Hematocrit (blood only) 28.9 % (37.0-47.0); Hemoglobin 9.9 g/dl (12.0-16.0); Mean Corpuscular Hemoglobin 35.7 pg (25.0-34.0); Mean Corpuscular Volume 104.3 fL (80.0-100.0); Platelet Count 119 K/uL (130-400); RDW Standard Deviation 48.3 fL (36.4-46.3); Red Blood Count 2.77 M/uL (4.20-5.40); White Blood Count 7.14 K/ul (4.8-10.8)
[2025-06-05 06:59] LABS: Immature Granulocytes # (auto) 0.03 K/uL (0.01-0.20); Immature Granulocytes % (auto) 0.4 %
--- NOTE | 2025-06-05 07:51 | Cardiology Progress Note ---
Date of Service June 05, 2025 Assessment & Plan (1) Cardiomyopathy: Plan: See below Plan * 69-year-old female presenting with several days of malaise + chest pain + dyspnea; elevated troponin (>300) and significant ST segment/T wave inversion on EKG. * Echocardiogram c/w potential Tako Tsubo * Coronary angiography without obstructive disease. * Marginal Systemic BP * Neosynephrine started to address potential LVOT dynamic gradient Plans: * Repeat Limited ECHO - reviewed - LVEF improving - LVEF 40-45% - WMA noted at apex * Norepi (OFF) - please discontinue * Midodrine - Please Stop * Start Toprol XL 25 mg po BID * Mobilize * Laxative * Patient appears euvolemic * No further diuresis * K+ goal 4.5-5 (at goal) * Mag goal >2 (at goal) * Start Eliquis 5 mg po BID x 3 month - can be reviewed in clinic and discontinued if Heart Function improves * Follow up ECHO in Clinic to assess cardiac recovery * STOP Heparin until ECHO results reviewed * Respiratory Viral Panel - negative * Restart Statin * We will arrange follow up with [facility] - Kiley Nguyen * Please call back with any additional questions Abner Basurto Admission and Anticipated Discharge Date Admission Date: June 03, 2025 Subjective Events Overnight: * None reported * Phenylephrine OFF Subjective: * No complaints Review of Systems Review of Systems: All systems reviewed & are unremarkable except as noted in HPI & below Physical Exam Physical Exam: No elevation in JVP S1S2 2/6 Systolic Murmur at base + LLSB; 2/6 HSM at apex CTA B on anterior exam No C/C/E Warm and well-perfused Neuro - intact Results & Data Vital Signs (Past 12 Hours) Vital Signs Temp Pulse Resp BP Pulse Ox O2 Del Method O2 Flow Rate 06/05/25 06:00 89 21 124/64 96 Nasal Cannula 2 06/05/25 05:00 36.7 C 97 H 20 121/59 L 93 Nasal Cannula 2 06/05/25 04:00 90 15 118/58 L 93 Nasal Cannula 2 06/05/25 03:06 93 H 18 93 Nasal Cannula 3 06/05/25 02:00 37.2 C 100 H 16 117/61 94 Nasal Cannula 2 06/05/25 01:00 94 H 19 113/60 90 Nasal Cannula 2 06/05/25 00:00 96 H 06/05/25 00:00 36.8 C 97 H 19 132/76 91 Nasal Cannula 2 06/04/25 23:00 91 H 16 125/66 92 Nasal Cannula 2 06/04/25 22:16 Nasal Cannula 2 06/04/25 22:00 100 H 20 124/63 94 Nasal Cannula 2 06/04/25 21:00 95 H 19 122/67 92 Nasal Cannula 2 06/04/25 20:00 91 H 17 105/62 92 Nasal Cannula 2 Laboratory Results CBC 06/05/25 Range/Units 03:46 WBC 7.14 (4.8-10.8) K/ul RBC 2.77 L (4.20-5.40) M/uL Hgb 9.9 L D (12.0-16.0) g/dl Hct 28.9 L (37.0-47.0) % Plt Count 119 L (130-400) K/uL Neut # (Auto) 5.38 (1.40-6.50) K/uL Lymph # (Auto) 1.10 L (1.20-3.40) K/uL [place] # (Auto) 0.58 (0.11-0.59) K/uL Eos # (Auto) 0.02 (0.00-0.50) K/uL Baso # (Auto) 0.03 (0.00-0.20) K/uL Comprehensive Metabolic Panel 06/04/25 06/05/25 Range/Units 16:06 03:46 Sodium 128 L 128 L (136-145) mmol/L Potassium 3.8 4.5 (3.5-5.1) mmol/L Chloride 96 L 99 (98-107) mmol/L Carbon Dioxide 21 20 L (21-32) mmol/L BUN 11 11 (6-23) mg/dl Creatinine 1.01 0.88 (0.6-1.2) mg/dl Glucose 141 H 115 H (70-99(Fasting)) mg/dl Calcium 8.2 L 7.7 L (8.6-10.3) mg/dl Intake and Output 06/04/25 06/05/25 06/05/25 22:59 06:59 14:59 Intake Total 738.317 / 1886.799 460.650 / 1886.799 21.467 / .467 Output Total 250 / 550 195 / 550 Balance 488.317 / 1336.799 265.650 / 1336.799 21.467 / .467 Intake: IV 738.317 / 1586.799 160.650 / 1586.799 21.467 / .467 Albumin 5% 250 ml @ 500 mls/hr 250 / 250 IV [facility] Rx#:[id number] Heparin 19092 Unit/500 ml D5w 139.767 / 409.633 139.2 / 409.633 21.467 / 21.467 25,000 units In 500 ml @ 700 UNITS/HR 14 mls/hr IV .Q24H [facility] Rx#:[id number] Magnesium Sulfate / D5w 1 gm In 100 / 388.333 100 ml @ 50 mls/hr IV Q2H [facility] Rx#:[id number] Phenylephrine/Nss 25 mg In 250 198.550 / 438.333 21.450 / 438.333 ml @ 0 MCG/KG/MIN IV .Q0M [facility] Rx#:[id number] cefTRIAXone SODIUM 1,000 mg In 50 / 50 50 ml @ 100 mls/hr IV Q24H [facility] Rx#:[id number] Oral 300 / 300 Output: Urine Amount (Catheter) 250 / 550 195 / 550 [place]/Indwelling 250 / 550 195 / 550 Other: Weight 76 kg Weight Measurement Method Built in [facility] Medications Administered Current Inpatient Medications Promethazine HCl (Phenergan) 12.5 mg in 50.5 mls @ 202 mls/hr IV Q6H PRN PRN Reason: Nausea And Vomiting Stop: 07/03/25 13:23 Last Infusion: 06/04/25 12:57 Dose: Infused Heparin Sodium/Dextrose (Heparin 42677 Unit/500 Ml D5w) 25,000 units in 500 mls @ 14 mls/hr IV .Q24H [facility]; Protocol Stop: 07/03/25 17:14 Last Titration: 06/05/25 07:07 Dose: 700 units/hr, 14 mls/hr Phenylephrine HCl (Phenylephrine/Nss) 25 mg in 250 mls @ 0 mls/hr IV .Q0M [facility]; Protocol Stop: 07/03/25 17:59 Last Titration: 06/05/25 06:40 Dose: Infused Ceftriaxone Sodium (Rocephin) 1,000 mg in 50 mls @ 100 mls/hr IV Q24H [facility] Stop: 06/09/25 18:59 Last Infusion: 06/04/25 20:05 Dose: Infused Melatonin (Melatonin 3 Mg Tab) 6 mg PO HS PRN PRN Reason: Sleep Stop: 07/04/25 19:56 Last Admin: 06/04/25 22:01 Dose: 6 mg Metoprolol Tartrate (Metoprolol Tartrate 25 Mg Tab) 12.5 mg PO BID [facility] Stop: 07/03/25 20:59 Last Admin: 06/04/25 20:06 Dose: Not Given Midodrine (Midodrine Hcl 2.5 Mg Tab) 5 mg PO TID@0800,1200,1700 [facility] Stop: 07/04/25 11:59 Last Admin: 06/04/25 17:14 Dose: 5 mg Miscellaneous (Icu Electrolyte Replacement Protocol) 1 each N/A BID@06,18 [facility]; Protocol Stop: 06/11/25 05:59 Last Admin: 06/05/25 05:33 Dose: 1 each Pantoprazole Sodium (Pantoprazole 40 Mg Tab) 40 mg PO QAM [facility] Stop: 07/03/25 16:59 Last Admin: 06/04/25 09:20 Dose: 40 mg PG Care Time/CCT Total # of Minutes Spent Total Time Spent with Patient: Total time spent is greater than 50% in coordination of care (as documented) at patient's floor/unit and/or counseling patient: Coding Level of Care Code 67883 SUB INP/OBS CARE 3/50MIN Diagnoses Cardiomyopathy I42.9
--- NOTE | 2025-06-05 08:08 | Critical Care Progress Note ---
Date of Service June 05, 2025 Assessment & Plan (1) Acute hypoxic respiratory failure: (2) NSTEMI (non-ST elevated myocardial infarction): (3) Acute exacerbation of congestive heart failure: (4) Elevated troponin: (5) Stress-induced cardiomyopathy: Plan Natalie Justin is a 69-year-old female with past medical history significant for hypertension, cardiac murmur with reported LV hypertrophy followed by Dr. Rolle, and fall in November 2024 with rib fractures; who presented to [facility] on 06/03/2025 with left chest pain activated as a heart alert. Cardiac cath showed no blockages and no intervention was performed. 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 Patient brought back to ICU post cath. Neuro: CAM ICU: Negative -No acute issues CV: Repeat 2D echo 06/04/2025: EF 40-45%, mild MR 2D echo 06/03/2025: EF 30 to 35%, akinesis in expansion of the apical segment of the ventricle with hyperdynamic basilar segments, moderate MR, mild TR -- NSTEMI --> Takotsubo cardiomyopathy with cardiogenic shock -ST depression in lateral leads S/p cardiac cath 06/04/2025 with clean vessels. No intervention performed.. Continue with vasopressor support to keep MAP greater than 65, usually in Takotsubo there is increased catecholamine surge. Try to avoid vasopressors with high catecholamines Currently on phenylephrine --History of hypertension Metoprolol succinate 25 mg as well as lisinopril 20 mg at home Pulm: CTA chest 06/03/2025 personally reviewed: Interlobular thickening appreciated bilaterally upper and lower lobes No significant mediastinal lymphadenopathy -- Acute hypoxic respiratory failure Secondary to cardiogenic with pulmonary edema Continue with O2 supplementation to keep O2 saturation between 92-93% BiPAP nightly and as needed shortness of breath GI: -- Nausea and vomiting --> resolved Antiemetics as needed AST/ALT/alk phos within normal limits Renal: -- Monitor BUNs/creatinine Avoid nephrotoxic medications Heme: --New onset thrombocytopenia Did get Rocephin, could be one of the reasons On heparin drip as well Continue to monitor for the time being -- Monitor H&H Endo: -- ICU hyperglycemia protocol ID: -- UTI Urine culture growing E. coli, follow-up sensitivities Continue with Rocephin --Prophylaxis VTE: Heparin drip GI: Pantoprazole Lines: Peripheral Diet: Cardiac Plan: In/out: +1.1 L, urine output 540 Has been off vasopressors since at least midnight. Continue with midodrine for the time being, can stop it moving forward based on her blood pressures on the floor Continue with Rocephin for UTI for 5 days Case discussed with primary team as well as cardiology Hemodynamically stable to be downgrade to telemetry floor Please note the above document was generated using voice recognition software. It may contain grammatical, syntax or spelling errors.Any formal questions or concerns about the content, text or information contained within the body of this dictation should be directly addressed to the provider for clarification. Admission and Anticipated Discharge Date Admission Date: June 03, 2025 Subjective Patient seen and examined at bedside. No acute distress Denies any nausea vomiting Overall she is feeling better Was saturating well on room air Systolic blood pressure was in the 130s with MAP in the high 80s to low 90s. Denies any abdominal pain Finished her breakfast without any issues Review of Systems 2 Review of Systems: All systems reviewed & are unremarkable except as noted in Subjective Physical Exam 2 Physical Exam: Constitutional: No acute distress HEENT: EOMI, PERRLA Respiratory system: Decreased entry bilaterally, no wheeze, no rhonchi, positive crackles bilaterally CVS: S1-S2 positive, positive 2 out of 6 systolic murmur appreciated best at the left parasternal border Abdomen: Soft, nontender, nondistended, positive bowel sounds x4 Extremities: +2 pulses bilaterally radialis/ dorsalis pedis, no cyanosis, no edema, hematoma ventral surface of the right arm Neuro: Awake alert oriented x3 Psych: Normal mood and affect G/U: Positive [place] Skin: no rashes, warm and dry Lymphatic: no cervical or axillary lymphadenopathy Results & Data Results & Data Vital Signs (Past 12 Hours) Vital Signs Temp Pulse Resp BP Pulse Ox O2 Del Method O2 Flow Rate 06/05/25 06:00 89 21 124/64 96 Nasal Cannula 2 06/05/25 05:00 36.7 C 97 H 20 121/59 L 93 Nasal Cannula 2 06/05/25 04:00 90 15 118/58 L 93 Nasal Cannula 2 06/05/25 03:06 93 H 18 93 Nasal Cannula 3 06/05/25 02:00 37.2 C 100 H 16 117/61 94 Nasal Cannula 2 06/05/25 01:00 94 H 19 113/60 90 Nasal Cannula 2 06/05/25 00:00 96 H 06/05/25 00:00 36.8 C 97 H 19 132/76 91 Nasal Cannula 2 06/04/25 23:00 91 H 16 125/66 92 Nasal Cannula 2 06/04/25 22:16 Nasal Cannula 2 06/04/25 22:00 100 H 20 124/63 94 Nasal Cannula 2 06/04/25 21:00 95 H 19 122/67 92 Nasal Cannula 2 Laboratory Results 06/05/25 03:46 06/05/25 03:46 Coding Level of Care Code 97959 SUB INP/OBS CARE 2/35MIN Diagnoses Acute hypoxic respiratory failure J96.01 NSTEMI (non-ST elevated myocardial infarction) I21.4 Acute exacerbation of congestive heart failure I50.9 Elevated troponin R79.89 Stress-induced cardiomyopathy I51.81
[2025-06-05] MEDS: ALBUMIN 5% 250 ML IV ONE (08:45)
--- NOTE | 2025-06-05 11:02 | XRay Report ---
XR chest 1V portable CLINICAL HISTORY: stress induced cardiomyopathy COMPARISON STUDY: 06/03/2025 FINDINGS: Heart size and pulmonary vasculature are normal. There is interval hazy opacity in the lung bases with mild blunting of the costophrenic angles. No pneumothorax. IMPRESSION: Interval lung base opacity could represent pneumonia or small pleural effusions. ACT 112: Negative or not required by law. Electronically signed by: Anibal Meyers M.D. 06/05/2025 11:00 AM
--- NOTE | 2025-06-05 13:55 | Hospitalist Progress Note ---
Date of Service June 05, 2025 Assessment & Plan (1) NSTEMI (non-ST elevated myocardial infarction): Plan: Patient was brought to the hospital on account of chest pain radiating to the left shoulder. EKG x 2 done in the ED showed ST depression. 2D echo showed evidence of apical ballooning, probably chronic from a previous hx of takotsubo Repeat 2D echo showed ejection fraction 40 to 45%, with wall motion abnormality He is s/p Cardiac catheter which showed clean coronaries and no interventions were done. 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 Physical Exam Physical Exam: The patient is awake, alert and oriented 3, well developed and well nourished, normocephalic and atraumatic, lying in bed and in no acute distress. HEENT--PERRL, EOMI, mucous membranes and oropharynx mildly dry Neck--supple. No JVD. No bruits. Thyroid normal, trachea midline, no adenopathy. Heart--normal S1 and S2. No murmurs, rubs or gallops. Lungs--clear bilaterally, no respiratory distress, no accessory muscle use. Abdomen--normal bowel sounds and soft. Extremities--no cyanosis or clubbing. No edema. Dermatologic--normal skin turgor, normal color, no abnormal lymph nodes, no rash. Neurologic--cranial nerves II through XII grossly intact. Rheumatologic--normal range of motion. Psychiatric--normal affect. Results & Data Results & Data Vital Signs (Past 12 Hours) Vital Signs Temp Pulse Resp BP Pulse Ox O2 Del Method O2 Flow Rate 06/05/25 09:06 86 22 88 L 06/05/25 09:01 134/68 06/05/25 09:01 134/68 06/05/25 08:57 82 17 90 06/05/25 08:07 98.6 F 06/05/25 08:00 92 H 20 96 06/05/25 08:00 115/63 06/05/25 08:00 115/63 06/05/25 07:00 92 H 20 96 06/05/25 07:00 110/71 06/05/25 07:00 110/71 06/05/25 06:00 89 21 124/64 96 Nasal Cannula 2 06/05/25 05:00 98.1 F 97 H 20 121/59 L 93 Nasal Cannula 2 06/05/25 04:00 90 15 118/58 L 93 Nasal Cannula 2 06/05/25 03:06 93 H 18 93 Nasal Cannula 3 06/05/25 02:00 99.0 F 100 H 16 117/61 94 Nasal Cannula 2 PG Care Time/CCT Total # of Minutes Spent Total Time Spent with Patient: Total time spent is greater than 50% in coordination of care (as documented) at patient's floor/unit and/or counseling patient: Coding Level of Care Code 83717 SUB INP/OBS CARE 2/35MIN Diagnoses NSTEMI (non-ST elevated myocardial infarction) I21.4 Hypertension I10 Acute hypoxic respiratory failure J96.01 Stress-induced cardiomyopathy I51.81 Time Spent (min) 35
[2025-06-05] MEDS: SODIUM CHLORIDE 1 GM TABLET PO SCH (14:03)
--- NOTE | 2025-06-05 14:54 | Electrocardiogram Report ---
Test Reason : Blood Pressure : */* mmHG Vent. Rate : 83 BPM Atrial Rate : 83 BPM P-R Int : 182 ms QRS Dur : 98 ms QT Int : 426 ms P-R-T Axes : 61 23 -58 degrees QTcB Int : 500 ms Normal sinus rhythm Possible Left atrial enlargement Left ventricular hypertrophy with repolarization abnormality ( Jeff product ) Poor R-wave progression ; consider septal infarct, lead placement, or normal variant Prolonged QT Abnormal ECG When compared with ECG of 03-Jun-2025 09:46, (unconfirmed) Criteria for Inferior infarct are no longer Present ST no longer depressed in Anterolateral leads T wave inversion less evident in Lateral leads Confirmed by Mustapha Cruz ([id number]) on 06/05/2025 2:53:59 PM Referred By: REFERRED SELF Confirmed By: Mustapha Cruz
--- NOTE | 2025-06-05 14:54 | Electrocardiogram Report ---
Test Reason : Blood Pressure : */* mmHG Vent. Rate : 81 BPM Atrial Rate : 81 BPM P-R Int : 176 ms QRS Dur : 94 ms QT Int : 430 ms P-R-T Axes : 63 17 -53 degrees QTcB Int : 499 ms Normal sinus rhythm Septal infarct , age undetermined T wave abnormality, consider inferior ischemia T wave abnormality, consider anterolateral ischemia QTcB >= 480 msec Abnormal ECG When compared with ECG of 03-Jun-2025 11:48, (unconfirmed) No significant change was found Confirmed by Mustapha Cruz ([id number]) on 06/05/2025 2:54:46 PM Referred By: REFERRED SELF Confirmed By: Mustapha Cruz
--- NOTE | 2025-06-05 14:56 | Electrocardiogram Report ---
Test Reason : Blood Pressure : */* mmHG Vent. Rate : 87 BPM Atrial Rate : 87 BPM P-R Int : 174 ms QRS Dur : 100 ms QT Int : 400 ms P-R-T Axes : 59 18 242 degrees QTcB Int : 482 ms Normal sinus rhythm Possible Left atrial enlargement Septal infarct (cited on or before 03-Jun-2025) Prolonged QT Abnormal ECG When compared with ECG of 03-Jun-2025 20:20, (unconfirmed) Serial changes of Septal infarct Present Confirmed by Mustapha Cruz ([id number]) on 06/05/2025 2:56:01 PM Referred By: REFERRED SELF Confirmed By: Mustapha Cruz
[2025-06-05] MEDS: APIXABAN 5 MG TABLET PO SCH (21:11)
[2025-06-05] MEDS: METOPROLOL SUCC 25MG EXT REL TAB PO SCH (21:11)
[2025-06-06 06:23] LABS: Anion Gap 6.0 (3-11); Blood Urea Nitrogen 12.0 mg/dl (6-23); Calcium 7.8 mg/dl (8.6-10.3); Carbon Dioxide 22.0 mmol/L (21-32); Chloride 100.0 mmol/L (98-107); Creatinine Clr Calc Pharmacy 71.1 ml/min; Glucose 106.0 mg/dl (70-99(Fasting)); Magnesium 2.0 mg/dl (1.7-2.4); Potassium 4.0 mmol/L (3.5-5.1); Sodium 128.0 mmol/L (136-145)
--- NOTE | 2025-06-06 06:25 | Electrocardiogram Report ---
Test Reason : Blood Pressure : */* mmHG Vent. Rate : 95 BPM Atrial Rate : * BPM P-R Int : * ms QRS Dur : 82 ms QT Int : 382 ms P-R-T Axes : * -10 201 degrees QTcB Int : 480 ms Sinus rhythm Inferior infarct , age undetermined Anterior infarct (cited on or before 03-Jun-2025) Abnormal ECG When compared with ECG of 03-Jun-2025 08:44, (unconfirmed) Serial changes of Anterior infarct Present Confirmed by Mustapha Cruz ([id number]) on 06/06/2025 6:25:05 AM Referred By: REFERRED SELF Confirmed By: Mustapha Cruz
--- NOTE | 2025-06-06 06:27 | Electrocardiogram Report ---
Test Reason : Blood Pressure : */* mmHG Vent. Rate : 95 BPM Atrial Rate : 95 BPM P-R Int : 152 ms QRS Dur : 92 ms QT Int : 368 ms P-R-T Axes : -17 -6 -60 degrees QTcB Int : 462 ms Normal sinus rhythm Septal infarct , age undetermined Abnormal ECG When compared with ECG of 28-Jun-2013 01:27, Confirmed by Mustapha Cruz ([id number]) on 06/06/2025 6:27:07 AM Referred By: REFERRED SELF Confirmed By: Mustapha Cruz
[2025-06-06 06:38] LABS: ANTI-Xa, UFH(UnfractionatedHep 1.11 IU/ml (0.3-0.7)
[2025-06-06 07:24] VITALS: RESP 16; TEMP 98.1; O2SAT 94
[2025-06-06] MEDS: ATORVASTATIN 40 MG TAB PO SCH (09:10)
[2025-06-06 09:30] VITALS: BP 58/34; PULSE 90
--- NOTE | 2025-06-06 09:42 | Discharge Summary ---
Date of Service June 06, 2025 Admission HPI Per Admitting Provider Is a 69-year-old female with a history of hypertension, cardiomyopathy, who came to the emergency department today with complaints of left-sided chest pain. According to reports, patient had fallen in November 2024 and sustained some rib fractures. Initially she thought the pain was coming from the previous fracture however the pain persisted and then radiated to the left shoulder which made her come to the emergency department. In the ED, initial EKG showed some ST depression in the inferior and lateral leads on the repeats EKG showed worsening of depression. 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 Also developed hypoxic respiratory failure and was put on BiPAP. Currently saturating well on room air. Admission Exam (Per Admitting) Constitutional The patient is awake, alert and oriented 3, well developed and well nourished, normocephalic and atraumatic, lying in bed and in no acute distress. HEENT--PERRL, EOMI, mucous membranes and oropharynx mildly dry Neck--supple. No JVD. No bruits. Thyroid normal, trachea midline, no adenopathy. Heart--normal S1 and S2. No murmurs, rubs or gallops. Lungs--clear bilaterally, no respiratory distress, no accessory muscle use. Abdomen--normal bowel sounds and soft. Extremities--no cyanosis or clubbing. No edema. Dermatologic--normal skin turgor, normal color, no abnormal lymph nodes, no rash. Neurologic--cranial nerves II through XII grossly intact. Rheumatologic--normal range of motion. Psychiatric--normal affect. Discharge Data Consultations 06/03/25 11:10 ED Decision to Admit Stat 06/03/25 12:00 Consult Injection Operator Routine Procedures Performed Operation Date: 06/03/25 10:30 Actual Procedures p Cineradiography w/Routine Exam - Cornell Bey MD, PhD p Cath, Coronaries ONLY (no LV) - Cornell Bey MD, PhD Hospital Course (1) NSTEMI (non-ST elevated myocardial infarction): Patient was brought to the hospital on account of chest pain radiating to the left shoulder. EKG x 2 done in the ED showed ST depression. 2D echo showed evidence of apical ballooning, probably chronic from a previous hx of takotsubo Repeat 2D echo showed ejection fraction 40 to 45%, with wall motion abnormality He is s/p Cardiac catheter which showed clean coronaries and no interventions were done. 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 (3) Acute hypoxic respiratory failure: Likely secondary to pulmonary edema Patient was put on BiPAP, Now currently on oxygen through nasal Will wean oxygen as tolerated (4) Stress-induced cardiomyopathy: Patient has a history of Takotsubo cardiomyopathy Follows up with cardiology outpatient (5) Acute exacerbation of congestive heart failure: Acute systolic CHF EF 40-45% due to stress cardiomyopathy follow up cardiology outpatient metoprolo 25mg BID, (6) Cardiomyopathy: Plan Full code transfer out of ICU Coding Level of Care Code 84736 INP/OBS DISCH >30 MIN Diagnoses NSTEMI (non-ST elevated myocardial infarction) I21.4 Hypertension I10 Acute hypoxic respiratory failure J96.01 Stress-induced cardiomyopathy I51.81 Acute exacerbation of congestive heart failure I50.9 Cardiomyopathy I42.9 Time Spent (min) 35
== END 2025-06-06 10:34 | disposition home or self-care (01) | DRG 280 ==
LOC: ED 08:36 → 1E 10:51 → CC 10:54 → 1E 11:16 → 2S 06-05 14:32
PROC: CLB.CCO (2025-06-03 10:30)